=== PATIENT | female | born 1955 | race Hispanic/Latino ===

== ENCOUNTER 2016-10-17 16:55 | Inpatient (IN) | payer OTHER ==
[2016-10-17] MEDS: Vancomycin 1gm in NS 250ml 1 GM/250 ML BAG IVPB SCH (18:32)
[2016-10-17 18:42] LABS: BASO # 0.01 K/mm3 (0.0-2.0); BASO % 0.1 % (0.0-3.0); EOS # 0.1 (0.0-0.7); EOS % 1.6 % (1.5-5.0); GRAN # 5.57 (1.4-6.5); GRAN % 72.6 % (50.0-68.0); HEMATOCRIT 35.4 % (36.0-48.0); LYMPH # 1.5 (1.2-3.4); LYMPH % 19.4 % (22.0-35.0); MEAN CELL VOLUME 86.1 fl (80.0-105.0); MEAN CORPUSCULAR HEMOGLOBIN 27.5 pg (25.0-35.0); MEAN CORPUSCULAR HGB CONC 31.9 g/dl (31.0-37.0); MEAN PLATELET VOLUME 10.8 fl (7.0-11.0); MONO # 0.5 (0.1-0.6); MONO % 6.3 % (1.0-6.0); RED CELL DISTRIBUTION WIDTH 14.4 % (11.5-14.5); WHITE BLOOD COUNT 7.7 10^3/ul (4.5-11.0)
[2016-10-17 18:51] LABS: ALB/GLOB RATIO 1.4 (1.1-1.8); ALKALINE PHOSPHATASE 141 U/L (38-126); ALT/SGPT 76 U/L (7-56); AST/SGOT 45 U/L (14-36); BILIRUBIN,TOTAL 0.6 mg/dL (0.2-1.3); BLOOD UREA NITROGEN 19 mg/dL (7-21); CALCIUM 9.4 mg/dL (8.4-10.5); CARBON DIOXIDE 27 mmol/L (21-33); CHLORIDE 104 mmol/L (98-107); GFR AFRICAN-AMERICAN > 60; GLUCOSE,RANDOM 112 mg/dL (70-110); POTASSIUM 4.7 mmol/L (3.6-5.0); SODIUM 141 mmol/L (132-148); TOTAL PROTEIN 7.1 g/dL (5.8-8.3)
--- NOTE | 2016-10-17 19:28 | ED PDOC ---
Addendum entered and electronically signed by Luis Raphael DO 22:22: Addendum Addendum: 10/17/16 22:10 Please ignore HPI, ROS, and PE in previous note. Please add Plan below to plan in previous note. HPI: 61 F with Past medical history significant for diabetes presents with 1 month duration of LLE cellulitis. Patient states that she did go to [facility] a month ago when it started to get it checked out, and she was prescribed Abx, but she did not have insurance so she did not get the Rx filled. Since then, the infection has gotten worse, and now that she has insurance again, she would like to get treated. Patient denies cp/sob/f/ch/n/v/d. She further denies los and denies loss of function proximal or distal to the cellulitis. Patient has no further complaints. ROS: Constitutional: pt denies fever, chills, generalized weakness ENT: pt denies dysphagia, otalgia, hearing deficit, rhinorrhea Eyes: pt denies sudden loss of vision, diplopia, blurred vision MSK: pt denies muscle stiffness, joint pain, extremity cramping Cardio: pt denies sob, heart murmur, cp Pulm: pt denies cough, hemoptysis, wheeze GI: pt denies loss of appetite, abdominal pain, constipation, melena, n/v/d : pt denies burning on urination, urinary frequency, hematuria, urinary urgency Neuro: pt denies paresis, paresthesia, dizziness, grijalva, numbness, tingling Derm: +see HPI Endo: pt denies intolerance to heat/cold, diaphoresis, night sweats, polydipsia Psych: pt denies anxiety, depression, mood changes PE VS as below Constitutional: a&o x 4, nad Head and Neck: neck supple, no jvd, trachea midline, carotid midline, no cervical/head mass Eyes: tima, nonicteric sclera, eom intact ENT: auditory acuity grossly intact, throat not congested, no nasal deformity Cardio: rrr, no m/r/g, no carotid bruit, nml s1, s2 Pulm: no accessory muscle use, equal nml breath sounds bilaterally, ctab Abd: s/nt/nd, nbs x 4 q, no palpable masses Derm: no rashes, no ulcers, no lesions Extr: +LLE Anterior hay is erythematous with a large cellulitic lesion. Is oozing pus, is malodorous, and is TTP. No los or loss of motor function proximal or distal to the wound. +Patient has significant b/l 1+ pitting edema. no cyanosis, no calf tenderness, no lesions, no varicosities Neuro: cn II-XII grossly intact, ue and le 5/5 muscle strength bilaterally, no los ue, le bilaterally and core Plan: - Tib/fib XR does not show any penetration into the bone. - Case d/w Dr. Dominguez for admission to hospitalist service. Dr. Dominguez agreed to admission to hospitalist service on med/surg. Original Note: Arrival/HPI <Luis Raphael - Last Filed: 10/17/16 22:10> <Fer Guerrero DO - Last Filed: 10/17/16 22:51> - General Chief Complaint: Lower Extremity Problem/Injury Time Seen by Provider: 10/17/16 17:11 - History of Present Illness Narrative History of Present Illness (Text): 10/17/16 21:22 61 F presents with complaints of dizziness. Patient states that she was walking around a nearby park when she started feeling lightheaded. Patient also states that she had some chest pain that coincided with the dizziness. She denies any other symptoms, including f/ch/sob/n/v/d/, hematuria, dysuria, change in vision, symptoms of a URI, loc, falling and hitting her head. Patient is german speaking and folder stitcher operator was used. Of note, patient was insistent that her son is in this hospital and that she needs to have important documents placed in his chart. Registration helped place the documents where they were supposed to be. 10/17/16 21:25 (Luis Raphael) Past Medical History - Provider Review Nursing Documentation Reviewed: Yes - Infectious Disease Hx of Infectious Diseases: None - Reproductive Menopause: Yes - Cardiac Hx ME: Yes (2012) Hx Hypertension: Yes - Pulmonary Hx Asthma: Yes Hx Chronic Obstructive Pulmonary Disease (COPD): Yes - Endocrine/Metabolic Hx Diabetes Mellitus Type 2: Yes - Psychiatric Hx Substance Use: No - Surgical History Other/Comment: by-pass both legs - Anesthesia Hx Anesthesia Reactions: No Hx Malignant Hyperthermia: No <Luis Raphael - Last Filed: 10/17/16 22:10> Family/Social History - Physician Review Nursing Documentation Reviewed: Yes Family/Social History: No Known Family HX Smoking Status: Never Smoked Hx Alcohol Use: No Hx Substance Use: No <Luis Raphael - Last Filed: 10/17/16 22:10> Allergies/Home Meds <Luis Raphael - Last Filed: 10/17/16 22:10> <Fer Guerrero DO - Last Filed: 10/17/16 22:51> Allergies/Adverse Reactions: Allergies No Known Allergies Allergy (Verified 10/17/16 17:04) Home Medications: Home Meds Medication Instructions Recorded Confirmed Unobtainable 10/17/16 10/17/16 Review of Systems - Physician Review All systems were reviewed & negative as marked: Yes - Review of Systems Constitutional: Normal. absent: Fatigue, Weight Change Eyes: Normal. absent: Vision Changes, Photophobia ENT: Normal. absent: Hearing Changes, Tinnitus Respiratory: Normal. absent: SOB, Cough, Sputum Cardiovascular: Chest Pain. absent: Palpitations, Edema, Calf Pain Gastrointestinal: Normal. absent: Abdominal Pain, Stool Changes, Constipation, Nausea, Vomiting Genitourinary Female: Normal. absent: Dysuria, Frequency, Hematuria, Urine Output Changes Musculoskeletal: Normal. absent: Arthralgias, Back Pain, Neck Pain Skin: Normal. absent: Rash, Pruritis, Skin Lesions Neurological: Dizziness. absent: Headache, Focal Weakness Endocrine: Normal. absent: Diaphoresis, Polyuria, Polydipsia Hemo/Lymphatic: Normal. absent: Adenopathy, Easy Bleeding, Easy Bruising Psychiatric: Normal. absent: Anxiety, Depression, Suicidal Ideation <Luis Raphael - Last Filed: 10/17/16 22:10> Physical Exam Vital Signs Reviewed: Yes Temperature: Afebrile Blood Pressure: Normal Pulse: Regular Respiratory Rate: Normal Appearance: Positive for: Well-Appearing, Non-Toxic, Comfortable Pain Distress: None Mental Status: Positive for: Alert and Oriented X 3 - Systems Exam Head: Present: Atraumatic, Normocephalic. No: Tenderness, Contusion Pupils: Present: PERRL. No: Sluggish, Non-Reactive, Pinpoint Extroacular Muscles: Present: EOMI. No: Gaze Palsy, Entrapment Conjunctiva: Present: Normal. No: Injected, Icteric Mouth: Present: Moist Mucous Membranes. No: Dry, Drooling, Trismus Neck: Present: Normal Range of Motion. No: Meningeal Signs, MIDLINE TENDERNESS , Paraspinal Tenderness Respiratory/Chest: Present: Clear to Auscultation, Good Air Exchange. No: Respiratory Distress, Accessory Muscle Use Cardiovascular: Present: Regular Rate and Rhythm, Normal S1, S2. No: Murmurs Abdomen: Present: Normal Bowel Sounds. No: Tenderness, Distention, Peritoneal Signs Back: Present: Normal Inspection. No: CVA Tenderness, Midline Tenderness, Paraspinal Tenderness Upper Extremity: Present: Normal Inspection, Normal ROM. No: Cyanosis, Edema Lower Extremity: Present: Normal Inspection, NORMAL PULSES, Normal ROM. No: Edema, CALF TENDERNESS Neurological: Present: GCS=15, CN II-XII Intact, Speech Normal, Motor Func Grossly Intact Skin: Present: Warm, Dry, Normal Color. No: Rashes Psychiatric: Present: Alert, Oriented x 3, Normal Insight, Normal Concentration <Luis Raphael - Last Filed: 10/17/16 22:10> Medical Decision Making <Luis Raphael - Last Filed: 10/17/16 22:10> <Fer Guerrero DO - Last Filed: 10/17/16 22:51> ED Course and Treatment: 10/17/16 20:33 Impression: 61 F with infection on her LLE. Sent here by Dr. Travis Barnes - Wound cx, blood cx - LLE XR - CMP, CBC - Vancomycin q 12 (Luis Raphael) - Lab Interpretations Lab Results: 10/17/16 18:20 10/17/16 18:20 Lab Results 10/17/16 18:20: Sodium 141, Potassium 4.7, Chloride 104, Carbon Dioxide 27, Anion Gap 15, BUN 19, Creatinine 0.8, Est GFR ( Amer) > 60, Est GFR (Non- Af Amer) > 60, Random Glucose 112 H, Calcium 9.4, Total Bilirubin 0.6, AST 45 H , ALT 76 H, Alkaline Phosphatase 141 H, Total Protein 7.1, Albumin 4.1, Globulin 3.0, Albumin/Globulin Ratio 1.4 10/17/16 18:20: WBC 7.7, RBC 4.11, Hgb 11.3 L, Hct 35.4 L, MCV 86.1, MCH 27.5, MCHC 31.9, RDW 14.4, Plt Count 208, MPV 10.8, Gran % 72.6 H, Lymph % (Auto) 19.4 L, [place] % (Auto) 6.3 H, Eos % (Auto) 1.6, Baso % (Auto) 0.1, Gran # 5.57, Lymph # 1.5, [place] # 0.5, Eos # 0.1, Baso # 0.01 - RAD Interpretation Radiology Orders: 10/17/16 17:36 TIBIA FIBULA LEFT [RAD] Stat - Medication Orders Current Medication Orders: Albuterol/Ipratropium (Duoneb 3 Mg/0.5 Mg (3 Ml) Ud) 3 ml IH [id number] PRN PRN Reason: Shortness of Breath Aspirin (Aspirin Chewable) 81 mg PO DAILY JAMAR Atorvastatin Calcium (Lipitor) 20 mg PO DIN JAMAR Clopidogrel Bisulfate (Plavix) 75 mg PO DAILY JAMAR Vancomycin HCl (Vancomycin 1gm) 1 gm in 250 mls @ 167 mls/hr IVPB Q12H JAMAR PRN Reason: Protocol Last Admin: 10/17/16 18:32 Dose: 167 mls/hr Piperacillin Sod/Tazobactam Sod (Zosyn 3.375 In Ns 100ml) 100 mls @ 200 mls/hr IVPB Q6 JAMAR PRN Reason: Protocol Stop: 10/18/16 06:29 Sodium Chloride (Sodium Chloride 0.9%) 100 mls @ 75 mls/hr IV .Q1H20M JAMAR Insulin Human Lispro (Humalog Low) 0 units SC ACHS JAMAR PRN Reason: Protocol Lisinopril (Zestril) 5 mg PO DAILY JAMAR - PA / PROPERTY COORDINATOR / Resident Statement / has reviewed & agrees with the documentation as recorded. / has examined the patient and agrees with the treatment plan. <Fer Guerrero DO - Last Filed: 10/17/16 22:51> Disposition/Present on Arrival - Present on Arrival Any Indicators Present on Arrival: Yes History of DVT/PE: No History of Uncontrolled Diabetes: Yes Urinary Catheter: No History of Decub. Ulcer: No History Surgical Site Infection Following: None - Disposition Have Diagnosis and Disposition been Completed?: Yes Disposition Time: 19:55 Patient Plan: Admission <Luis Raphael - Last Filed: 10/17/16 22:10> - Disposition Disposition Time: 19:10 <Fer Guerrero DO - Last Filed: 10/17/16 22:51> - Disposition Diagnosis: Cellulitis Disposition: HOSPITALIZED Condition: STABLE
[2016-10-17] MEDS ORDERED: Albuterol-Ipratrop 3 mg / 0.5 (3 ml) UD IH PRN (22:19)
[2016-10-17] MEDS ORDERED: Sodium Chloride 0.9% 100 ML IV SCH (22:24)
[2016-10-17] MEDS: Piperacillin/Tazobact 3.375 gm 100 ML IVPB SCH (23:20)
--- NOTE | 2016-10-18 04:48 | CP.PCM.HP ---
<Luz MariaAquiles - Last Filed: 10/18/16 05:37> History of Present Illness - History of Present Illness History of Present Illness: IM H&P for Hospitalist Service CC: Leg Ulcer and cellulitis HPI: This is a 61 yo F with PMH of CAD s/p CABG x4, CT in 2012, DM, COPD, Asthma, HTN, and HLD who presents to [facility] with acutely worsening LLE ulceration with accompanying cellulitis. As per patient, she first incidentally noticed the ulceration ~ 1 month ago, at which time she presented to [facility]. She was discharged with antibiotics from [facility], but due to lacking insurance at the time, could not afford to get the script filled, so she never took the antibiotic. She reports that the infection /ulceration remained fairly stable/unchanging for ~3 weeks, but she has noticed acute worsening in the last 5 days, so she presented to her PMD's office, who instructed her to present to [facility]. Reports serosanguinous drainage from the site , but denies pus or gross bleeding from the site. Some tenderness at and around the site, but patient reports not significant pain, not limiting ambulation. Reports baseline mild paresthesias in bilateral LE from mid-shins to feet, some decreased sensation in bilateral LE but not to the point of numbness or to the point of inhibiting gait. Denies fevers/chills, headache, vision changes, dizziness/room-spinning, chest pain, shortness of breath, cough , nausea/emesis, abd pain, focal weakness, or falls. All remaining ROS in 12- point system review negative. PMH: As above PSH: CABG quadruple bypass FHx: DM, HTN SHx: Denies tobacco/alcohol/illicits PMD: Dr. Robles Follows a Talent Acquisition Specialist in [place] Present on Admission - Present on Admission Any Indicators Present on Admission: Yes History of DVT/PE: No History of Uncontrolled Diabetes: Yes Urinary Catheter: No Review of Systems - Review of Systems All systems: reviewed and no additional remarkable complaints except (as per HPI ) Past Patient History - Infectious Disease Hx of Infectious Diseases: None - Past Social History Smoking Status: Never Smoked - CARDIAC Hx Heart Attack: Yes (2012) Hx Hypertension: Yes - PULMONARY Hx Asthma: Yes Hx Chronic Obstructive Pulmonary Disease (COPD): Yes - ENDOCRINE/METABOLIC Hx Diabetes Mellitus Type 2: Yes - MUSCULOSKELETAL/RHEUMATOLOGICAL Hx Falls: No - PSYCHIATRIC Hx Substance Use: No - SURGICAL HISTORY Other/Comment: by-pass both legs - ANESTHESIA Hx Anesthesia Reactions: No Hx Malignant Hyperthermia: No Meds Allergies/Adverse Reactions: Allergies Allergy/AdvReac Type Severity Reaction Status Date / Time No Known Allergies Allergy Verified 10/17/16 17:04 Physical Exam - Constitutional Appears: Well, Non-toxic, No Acute Distress - Head Exam Head Exam: ATRAUMATIC, NORMAL INSPECTION, NORMOCEPHALIC - Eye Exam Eye Exam: EOMI, Normal appearance, PERRL. absent: Conjunctival injection, Scleral icterus Pupil Exam: NORMAL ACCOMODATION, PERRL. absent: Fixed, Irregular, Unequal - ENT Exam ENT Exam: Mucous Membranes Moist. absent: Mucous Membranes Dry - Neck Exam Neck exam: Positive for: Full Rom. Negative for: Lymphadenopathy - Respiratory Exam Respiratory Exam: Clear to Auscultation Bilateral, NORMAL BREATHING PATTERN. absent: Accessory Muscle Use, Chest Wall Tenderness, Decreased Breath Sounds, Rales, Rhonchi, Wheezes - Cardiovascular Exam Cardiovascular Exam: REGULAR RHYTHM, RRR, +S1, +S2. absent: Bradycardia, Tachycardia, Irregular Rhythm, +S4 - GI/Abdominal Exam GI & Abdominal Exam: Normal Bowel Sounds, Soft. 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 Good grooming of R foot, no onycholysis. Some slight discoloration along anterior midline surface of RLE not appearing to be cellulitic in nature, no fluctuance or abnormal temperature sensation on palpation LLE: Anterior lateral aspect of hay has with ulceration, diameter 3-4 cm at largest, irregular borders, invasion through epidermis but no involvement of deep structures (i.e. muscle, tendons, etc), not actively discharging from site even when pressure applied. Cellulitis spreading superiorly and inferiorly from wound site, extends circumferentially along LLE; no fluctuance palpated or temperature abnormalities palpated - Neurological Exam Neurological exam: Alert, CN II-XII Intact, Oriented x3 Additional comments: awake and alert, moving all extremities spontaneously, following all commands appropriately - Psychiatric Exam Psychiatric exam: Normal Affect, Normal Mood - Skin Skin Exam: Dry, Intact (except for LLE ulceration as documented in Extremities exam), Warm Results - Vital Signs Recent Vital Signs: Last Vital Signs Temp 98.2 F 10/18/16 01:40 Pulse 84 10/18/16 01:40 Resp 18 10/18/16 01:40 BP 158/67 H 10/18/16 01:40 Pulse Ox 98 10/17/16 21:46 - Labs Result Diagrams: 10/17/16 18:20 10/17/16 18:20 Assessment & Plan - Assessment and Plan (Free Text) Assessment: This is a 61 yo F with PMH of CAD s/p CABG x4, CT in 2012, DM, COPD, Asthma, HTN, and HLD who presents to [facility] with acutely worsening LLE ulceration with accompanying cellulitis. She is being admitted to receive IV antibiotics, pending ID and Podiatry evals and assessment. Plan: 1) LLE Ulceration with Cellulitis -likely 2/2 DM, need to rule out osteo -palpable distal pulses, so unlikely arterial insufficiency -Tib/Fib Radiograph obtained, no overt osteo noted, pending official read -Vanco 1g q12 started in ED, added Zosyn given DM; pending ID recs -Blood and wound cultures obtained, f/u -Podiatry and ID consulted, appreciate their recs 2) Hx DM -Lipro sliding scale, Fingerstick ACHS -holding home metformin 3) Hx HTN -starting on Lispro 5mg PO daily, will change to home regimen when able to reach her outpt pharmacy to confirm home regimen 4) Hx CAD s/p CABG -starting on Asa 81mg, Plavix 75mg, and Lipitor 20mg until home regimen can be determined, will switch at that time to home meds 5) Hx COPD/Asthma -satting well on room air, no indication for supplemental O2 at this time -Duonebs q6 prn Dispo: Med/Surg, receiving IV abx, pending Podiatry and ID eval and input, pending cultures and sensitivities FEN: Heart-healthy consistent Carb, NS 75cc/hr Access: Peripheral IV Consults: ID, Podiatry Ppx: Protonix for ID, Heparin SC for DVT Patient reviewed and discussed with attending, Dr. Dominguez. <Altagracia Dominguez - Last Filed: 10/19/16 03:33> Results - Vital Signs Recent Vital Signs: Last Vital Signs Temp 97.7 F 10/18/16 17:36 Pulse 83 10/18/16 17:44 Resp 20 10/18/16 17:36 BP 161/63 H 10/18/16 17:44 Pulse Ox 98 10/18/16 17:36 - Labs Result Diagrams: 10/18/16 05:00 10/18/16 05:00 Labs: Laboratory Results - last 24 hr 10/18/16 10/18/16 10/18/16 05:00 05:00 07:32 WBC 5.8 D RBC 3.87 Hgb 10.4 L Hct 33.4 L MCV 86.3 MCH 26.9 MCHC 31.1 RDW 14.7 H Plt Count 177 MPV 10.3 Gran % 78.9 H Lymph % (Auto) 13.9 L [place] % (Auto) 5.3 Eos % (Auto) 1.7 Baso % (Auto) 0.2 Gran # 4.60 Lymph # 0.8 L [place] # 0.3 Eos # 0.1 Baso # 0.01 ESR Sodium 141 Potassium 4.5 Chloride 108 H Carbon Dioxide 25 Anion Gap 13 BUN 15 Creatinine 0.8 Est GFR ( Amer) > 60 Est GFR (Non-Af Amer) > 60 POC Glucose (mg/dL) 129 H Random Glucose 123 H Calcium 8.8 Phosphorus 4.4 Magnesium 1.6 L Total Bilirubin 0.9 AST 37 H ALT 62 H Alkaline Phosphatase 114 C-React Prot High Sens Total Protein 5.8 Albumin 3.2 Globulin 2.5 Albumin/Globulin Ratio 1.3 10/18/16 10/18/16 10/18/16 11:00 11:50 11:55 WBC RBC Hgb Hct MCV MCH MCHC RDW Plt Count MPV Gran % Lymph % (Auto) [place] % (Auto) Eos % (Auto) Baso % (Auto) Gran # Lymph # [place] # Eos # Baso # ESR 26 H Sodium Potassium Chloride Carbon Dioxide Anion Gap BUN Creatinine Est GFR ( Amer) Est GFR (Non-Af Amer) POC Glucose (mg/dL) 205 H Random Glucose Calcium Phosphorus Magnesium Total Bilirubin AST ALT Alkaline Phosphatase C-React Prot High Sens > 15.00 H Total Protein Albumin Globulin Albumin/Globulin Ratio 10/18/16 10/18/16 17:06 21:28 WBC RBC Hgb Hct MCV MCH MCHC RDW Plt Count MPV Gran % Lymph % (Auto) [place] % (Auto) Eos % (Auto) Baso % (Auto) Gran # Lymph # [place] # Eos # Baso # ESR Sodium Potassium Chloride Carbon Dioxide Anion Gap BUN Creatinine Est GFR ( Amer) Est GFR (Non-Af Amer) POC Glucose (mg/dL) 172 H 115 H Random Glucose Calcium Phosphorus Magnesium Total Bilirubin AST ALT Alkaline Phosphatase C-React Prot High Sens Total Protein Albumin Globulin Albumin/Globulin Ratio Attending/Attestation - Attestation I have personally seen and examined this patient.: Yes I have fully participated in the care of the patient.: Yes I have reviewed all pertinent clinical information: Yes Notes (Text): 10/19/16 03:32 Agree with history , physical examination,assessment and plan.
[2016-10-18] MEDS: Vancomycin 1gm in NS 250ml 1 GM/250 ML BAG IVPB SCH (05:25)
[2016-10-18] MEDS: Piperacillin/Tazobact 3.375 gm 100 ML IVPB SCH (05:26)
[2016-10-18] MEDS: Pantoprazole 40 mg EC Tab PO SCH (05:40)
[2016-10-18 06:50] LABS: ALB/GLOB RATIO 1.3 (1.1-1.8); ALKALINE PHOSPHATASE 114 U/L (38-126); ALT/SGPT 62 U/L (7-56); AST/SGOT 37 U/L (14-36); BILIRUBIN,TOTAL 0.9 mg/dL (0.2-1.3); BLOOD UREA NITROGEN 15 mg/dL (7-21); CALCIUM 8.8 mg/dL (8.4-10.5); CARBON DIOXIDE 25 mmol/L (21-33); CHLORIDE 108 mmol/L (98-107); GFR AFRICAN-AMERICAN > 60; GLUCOSE,RANDOM 123 mg/dL (70-110); MAGNESIUM 1.6 mg/dL (1.7-2.2); PHOSPHOROUS 4.4 mg/dL (2.5-4.5); POTASSIUM 4.5 mmol/L (3.6-5.0); SODIUM 141 mmol/L (132-148); TOTAL PROTEIN 5.8 g/dL (5.8-8.3)
[2016-10-18 06:56] LABS: BASO # 0.01 K/mm3 (0.0-2.0); BASO % 0.2 % (0.0-3.0); EOS # 0.1 (0.0-0.7); EOS % 1.7 % (1.5-5.0); GRAN # 4.6 (1.4-6.5); GRAN % 78.9 % (50.0-68.0); HEMATOCRIT 33.4 % (36.0-48.0); LYMPH # 0.8 (1.2-3.4); LYMPH % 13.9 % (22.0-35.0); MEAN CELL VOLUME 86.3 fl (80.0-105.0); MEAN CORPUSCULAR HEMOGLOBIN 26.9 pg (25.0-35.0); MEAN CORPUSCULAR HGB CONC 31.1 g/dl (31.0-37.0); MEAN PLATELET VOLUME 10.3 fl (7.0-11.0); MONO # 0.3 (0.1-0.6); MONO % 5.3 % (1.0-6.0); RED CELL DISTRIBUTION WIDTH 14.7 % (11.5-14.5); WHITE BLOOD COUNT 5.8 10^3/ul (4.5-11.0)
[2016-10-18] MEDS ORDERED: Magnesium Sulfate 2 GM in Sodium Chloride 0.9% 100 ML IVPB ONE (07:43)
[2016-10-18] MEDS: Insulin Lispro (humaLOG) LOW Coverage SC SCH ×3 (08:09→17:26)
[2016-10-18] MEDS: Linezolid 600 mg in D5W 300 ml 600 MG/300 ML BAG IVPB SCH ×2 (09:31→22:21)
--- NOTE | 2016-10-18 11:12 | RAD ---
PROCEDURE: Radiographs of the left tibia and fibula. HISTORY: left LE cellulitis r/o osteomyelitis COMPARISON: None available. TECHNIQUE: Frontal and lateral views obtained. FINDINGS: BONES: No fracture or destructive lesion. JOINT SPACES: Unremarkable. OTHER FINDINGS: None. IMPRESSION: Unremarkable radiographs of the left tibia and fibula.
--- NOTE | 2016-10-18 13:11 | CP.PCM.CON ---
History of Present Illness - History of Present Illness History of Present Illness: 61 year old female with PMH of CAD S/P CABG (quadruple bypass), COPD, DM, asthma , dyslipidemia, HTN, obesity with BMI 37 came in to [facility] because of left lower extremity ulceration on the anterior leg area. She apparently had the ulcer a month ago and was at [facility] and was discharged on PO antibiotics but was not able to procure them because of lack of insurance. She noted worsening of the ulcer in the past week with some drainage but not outright pus. She denies specific animal contacts, no soaking her legs in water, no trips to wooded areas, no soil exposure. She also denies fever or chills, no nausea or vomiting, no headache or dizziness, no chest pain, no SOB, no cough or colds, no abdominal pain, no diarrhea, no dysuria. Infectious diseases consult is requested to further evaluate and manage. Review of Systems - Review of Systems All systems: reviewed and no additional remarkable complaints except (as per HPI ) Past Patient History - Infectious Disease Hx of Infectious Diseases: None - Past Social History Smoking Status: Never Smoked - CARDIAC Hx Heart Attack: Yes (2012) Hx Hypertension: Yes - PULMONARY Hx Asthma: Yes Hx Chronic Obstructive Pulmonary Disease (COPD): Yes - ENDOCRINE/METABOLIC Hx Diabetes Mellitus Type 2: Yes - MUSCULOSKELETAL/RHEUMATOLOGICAL Hx Falls: No - PSYCHIATRIC Hx Substance Use: No - SURGICAL HISTORY Other/Comment: by-pass both legs - ANESTHESIA Hx Anesthesia Reactions: No Hx Malignant Hyperthermia: No Meds Allergies/Adverse Reactions: Allergies Allergy/AdvReac Type Severity Reaction Status Date / Time No Known Allergies Allergy Verified 10/17/16 17:04 - Medications Medications: Current Medications Albuterol/Ipratropium (Duoneb 3 Mg/0.5 Mg (3 Ml) Ud) 3 ml IH [id number] PRN PRN Reason: Shortness of Breath Aspirin (Aspirin Chewable) 81 mg PO DAILY [facility] Atorvastatin Calcium (Lipitor) 20 mg PO DIN [facility] Clopidogrel Bisulfate (Plavix) 75 mg PO DAILY [facility] Heparin Sodium (Porcine) (Heparin) 5,000 units SC Q12 JAMAR PRN Reason: Protocol Vancomycin HCl (Vancomycin 1gm) 1 gm in 250 mls @ 167 mls/hr IVPB Q12H JAMAR PRN Reason: Protocol Last Admin: 10/18/16 05:25 Dose: 167 mls/hr Sodium Chloride (Sodium Chloride 0.9%) 100 mls @ 75 mls/hr IV .Q1H20M JAMAR Last Admin: 10/17/16 23:19 Dose: 75 mls/hr Insulin Human Lispro (Humalog Low) 0 units SC ACHS [facility] PRN Reason: Protocol Lisinopril (Zestril) 5 mg PO DAILY JAMAR Pantoprazole Sodium (Protonix Ec Tab) 40 mg PO 0600 [facility] Physical Exam - Constitutional Appears: Non-toxic, No Acute Distress - Head Exam Head Exam: NORMAL INSPECTION - Respiratory Exam Respiratory Exam: Decreased Breath Sounds - Cardiovascular Exam Cardiovascular Exam: +S1, +S2 - GI/Abdominal Exam GI & Abdominal Exam: Soft. absent: Tenderness - Extremities Exam Additional comments: left leg with ulcer with surrounding erythema Results - Vital Signs Recent Vital Signs: Last Vital Signs Temp 98.2 F 10/18/16 01:40 Pulse 84 10/18/16 01:40 Resp 18 10/18/16 01:40 BP 158/67 H 10/18/16 01:40 Pulse Ox 98 10/17/16 21:46 - Labs Result Diagrams: 10/18/16 05:00 10/18/16 05:00 Assessment & Plan - Assessment and Plan (Free Text) Plan: Assessment Consider infected left leg ulcer in a diabetic patient, with surrounding cellulitis CAD S/P CABG (quadruple bypass) COPD DM asthma dyslipidemia HTN obesity with BMI 37 Plan Started patient on Zyvox pending blood and wound cx; will get ESR and CRP and order doppler U/S to rule out peripheral vascular disease follow up Podiatry evaluation will check xray of the leg will monitor clinically
[2016-10-18] MEDS: Sodium Chloride 0.9% 1,000 ML IV SCH (18:19)
[2016-10-19] MEDS: Pantoprazole 40 mg EC Tab PO SCH (05:49)
[2016-10-19] MEDS: Insulin Lispro (humaLOG) LOW Coverage SC SCH ×4 (07:30→22:30)
[2016-10-19] MEDS: Linezolid 600 mg in D5W 300 ml 600 MG/300 ML BAG IVPB SCH ×2 (09:46→21:51)
--- NOTE | 2016-10-19 10:33 | CP.PCM.PN ---
<Rick Ohara - Last Filed: 10/19/16 12:37> Subjective - Date & Time of Evaluation Date of Evaluation: 10/19/16 Time of Evaluation: 10:31 - Subjective Subjective: Rick Ohara DO, PGY-1, Hospitalist Service Patient seen and examined at beside. Patient admits to bilateral LE tenderness, more in the left hay/calf area. No fever overnight. Objective - Vital Signs/Intake and Output Vital Signs (last 24 hours): Temp Pulse Resp BP Pulse Ox 98 F 79 19 145/53 L 95 10/19/16 07:50 10/19/16 09:46 10/19/16 07:50 10/19/16 09:46 10/19/16 07:50 - Medications Medications: Current Medications Albuterol/Ipratropium (Duoneb 3 Mg/0.5 Mg (3 Ml) Ud) 3 ml IH [id number] PRN PRN Reason: Shortness of Breath Aspirin (Aspirin Chewable) 81 mg PO DAILY [facility] Last Admin: 10/19/16 09:46 Dose: 81 mg Atorvastatin Calcium (Lipitor) 20 mg PO DIN [facility] Last Admin: 10/18/16 17:26 Dose: 20 mg Clopidogrel Bisulfate (Plavix) 75 mg PO DAILY [facility] Last Admin: 10/19/16 09:47 Dose: 75 mg Heparin Sodium (Porcine) (Heparin) 5,000 units SC Q12 [facility] PRN Reason: Protocol Last Admin: 10/19/16 09:47 Dose: 5,000 units Linezolid (Zyvox 600mg/300ml D5w) 600 mg in 300 mls @ 200 mls/hr IVPB Q12 [facility] PRN Reason: Protocol Stop: 10/25/16 10:01 Last Admin: 10/19/16 09:46 Dose: 200 mls/hr Sodium Chloride (Sodium Chloride 0.9%) 1,000 mls @ 75 mls/hr IV .[id number] [facility] Last Admin: 10/18/16 18:19 Dose: 75 mls/hr Insulin Human Lispro (Humalog Low) 0 units SC ACHS [facility] PRN Reason: Protocol Last Admin: 10/19/16 07:30 Dose: Not Given Lisinopril (Zestril) 5 mg PO DAILY [facility] Last Admin: 10/19/16 09:46 Dose: 5 mg Pantoprazole Sodium (Protonix Ec Tab) 40 mg PO 0600 [facility] Last Admin: 10/19/16 05:49 Dose: 40 mg - Labs Labs: 10/18/16 05:00 10/18/16 05:00 - Constitutional Appears: Non-toxic, No Acute Distress - Head Exam Head Exam: ATRAUMATIC, NORMOCEPHALIC - Eye Exam Eye Exam: EOMI, Normal appearance, PERRL Pupil Exam: NORMAL ACCOMODATION - ENT Exam ENT Exam: Mucous Membranes Moist, Normal Oropharynx - Neck Exam Neck Exam: Normal Inspection. absent: Lymphadenopathy, Thyromegaly - Respiratory Exam Respiratory Exam: Clear to Ausculation Bilateral, NORMAL BREATHING PATTERN. absent: Rales, Wheezes - Cardiovascular Exam Cardiovascular Exam: RRR, +S1, +S2 - GI/Abdominal Exam GI & Abdominal Exam: Soft, Normal Bowel Sounds. absent: Guarding, Rebound - Extremities Exam Extremities Exam: Calf Tenderness (left) Additional comments: Left lower extremity is warm to palpation with pain to palpation diffusely, open scar noted to be 2 x2.5 inches - Back Exam Back Exam: NORMAL INSPECTION. absent: CVA tenderness (L), CVA tenderness (R) - Neurological Exam Neurological Exam: Alert, Awake, Normal Gait, Oriented x3 - Psychiatric Exam Psychiatric exam: Normal Affect, Normal Mood - Skin Skin Exam: Dry, Warm. absent: Intact Assessment and Plan - Assessment and Plan (Free Text) Assessment: This is a 61 yo F with PMH of CAD s/p CABG x4, [place] in 2012, DM, COPD, Asthma, HTN, and HLD who [place] [facility] [place] worsening LLE ulceration with accompanying cellulitis. She is being admitted to receive IV antibiotics, pending ID and Podiatry evals and assessment. Plan: 1) LLE Ulceration with Cellulitis -Tib/Fib Radiograph grossly unremarkable - LLE US to rule out underlying DVT, performed, read pending. - Blood cultures (-) - Wound cultures of LLE grew gram positive cocci in clusters, pending final culture and sensitivities - Per ID, Linezolid 600 mg IV q12h, day # 2 - Podiatry consulted - ESR 26 and high sensitivity CRP 15 2) Diabetes Mellitus -ISS sliding scale, Fingerstick ACHS 3) Hypertension - Lisinopril 5 mg 4) CAD with CABG - Aspirin 81mg - Plavix 75mg - Lipitor 20mg 5) COPD/Asthma - Duoneb PRN 6) DVT/GI prophylaxis - Heparin 5,000 U q12h, Protonix 40 mg PO daily Patient reviewed and discussed with attending, Dr. Matamoros <Mame Matamoros - Last Filed: 10/19/16 12:59> Objective - Vital Signs/Intake and Output Vital Signs (last 24 hours): Temp Pulse Resp BP Pulse Ox 98 F 79 19 145/53 L 95 10/19/16 07:50 10/19/16 09:46 10/19/16 07:50 10/19/16 09:46 10/19/16 07:50 - Medications Medications: Current Medications Albuterol/Ipratropium (Duoneb 3 Mg/0.5 Mg (3 Ml) Ud) 3 ml IH [id number] PRN PRN Reason: Shortness of Breath Aspirin (Aspirin Chewable) 81 mg PO DAILY [facility] Last Admin: 10/19/16 09:46 Dose: 81 mg Atorvastatin Calcium (Lipitor) 20 mg PO DIN [facility] Last Admin: 10/18/16 17:26 Dose: 20 mg Clopidogrel Bisulfate (Plavix) 75 mg PO DAILY [facility] Last Admin: 10/19/16 09:47 Dose: 75 mg Heparin Sodium (Porcine) (Heparin) 5,000 units SC Q12 [facility] PRN Reason: Protocol Last Admin: 10/19/16 09:47 Dose: 5,000 units Linezolid (Zyvox 600mg/300ml D5w) 600 mg in 300 mls @ 200 mls/hr IVPB Q12 [facility] PRN Reason: Protocol Stop: 10/25/16 10:01 Last Admin: 10/19/16 09:46 Dose: 200 mls/hr Sodium Chloride (Sodium Chloride 0.9%) 1,000 mls @ 75 mls/hr IV .[id number] [facility] Last Admin: 10/18/16 18:19 Dose: 75 mls/hr Insulin Human Lispro (Humalog Low) 0 units SC ACHS [facility] PRN Reason: Protocol Last Admin: 10/19/16 12:24 Dose: 1 units Lisinopril (Zestril) 5 mg PO DAILY [facility] Last Admin: 10/19/16 09:46 Dose: 5 mg Pantoprazole Sodium (Protonix Ec Tab) 40 mg PO 0600 [facility] Last Admin: 10/19/16 05:49 Dose: 40 mg - Labs Labs: 10/18/16 05:00 10/18/16 05:00 Attending/Attestation - Attestation I have personally seen and examined this patient.: Yes I have fully participated in the care of the patient.: Yes I have reviewed all pertinent clinical information, including history, physical exam and plan: Yes Notes (Text): 10/19/16 12:53 61 year old female with past medical history of CAD, diabetes, hypertension, COPD and dyslipidemia who presented with left lower extremity cellulitis and ulceration. Continue with iv antibiotics as per ID. Wound culture is growing MRSA. Xray was negative. Doppler US was done with pending report. Podiatry evaluation is pending. Continue with insulin ss for diabetes. Hemoglobin A1c is pending. She is on lisinopril for hypertension and on aspirin, plavix and statin for history of CAD. Mame Matamoros MD Hospitalist.
[2016-10-19] MEDS: Sodium Chloride 0.9% 1,000 ML IV SCH ×2 (14:26→20:43)
--- NOTE | 2016-10-19 15:17 | CP.PCM.PN ---
Subjective - Date & Time of Evaluation Date of Evaluation: 10/19/16 Time of Evaluation: 10:30 - Subjective Subjective: Comfortable, not in distress, less pain in he left leg, no fevers overnight. Objective - Vital Signs/Intake and Output Vital Signs (last 24 hours): Temp Pulse Resp BP Pulse Ox 98.4 F 84 20 109/52 L 96 10/18/16 08:16 10/18/16 08:16 10/18/16 08:16 10/18/16 09:33 10/18/16 08:16 - Medications Medications: Current Medications Albuterol/Ipratropium (Duoneb 3 Mg/0.5 Mg (3 Ml) Ud) 3 ml IH [id number] PRN PRN Reason: Shortness of Breath Aspirin (Aspirin Chewable) 81 mg PO DAILY [facility] Last Admin: 10/18/16 09:34 Dose: 81 mg Atorvastatin Calcium (Lipitor) 20 mg PO DIN [facility] Clopidogrel Bisulfate (Plavix) 75 mg PO DAILY [facility] Last Admin: 10/18/16 09:33 Dose: 75 mg Heparin Sodium (Porcine) (Heparin) 5,000 units SC Q12 [facility] PRN Reason: Protocol Last Admin: 10/18/16 09:34 Dose: 5,000 units Sodium Chloride (Sodium Chloride 0.9%) 100 mls @ 75 mls/hr IV .[id number] [facility] Last Admin: 10/17/16 23:19 Dose: 75 mls/hr Linezolid (Zyvox 600mg/300ml D5w) 600 mg in 300 mls @ 200 mls/hr IVPB Q12 [facility] PRN Reason: Protocol Stop: 10/25/16 10:01 Last Admin: 10/18/16 09:31 Dose: 200 mls/hr Insulin Human Lispro (Humalog Low) 0 units SC ACHS [facility] PRN Reason: Protocol Last Admin: 10/18/16 13:00 Dose: 2 units Lisinopril (Zestril) 5 mg PO DAILY [facility] Last Admin: 10/18/16 09:33 Dose: Not Given Pantoprazole Sodium (Protonix Ec Tab) 40 mg PO 0600 [facility] - Labs Labs: 10/18/16 05:00 10/18/16 05:00 - Constitutional Appears: Non-toxic, No Acute Distress - Head Exam Head Exam: NORMAL INSPECTION - ENT Exam ENT Exam: Mucous Membranes Moist - Neck Exam Neck Exam: absent: Meningismus - Respiratory Exam Respiratory Exam: Decreased Breath Sounds - Cardiovascular Exam Cardiovascular Exam: +S1, +S2 - GI/Abdominal Exam GI & Abdominal Exam: Soft. absent: Tenderness - Extremities Exam Additional comments: left leg ulcer starting to dry up Assessment and Plan - Assessment and Plan (Free Text) Plan: Assessment infected left leg ulcer in a diabetic patient, with surrounding cellulitis, growing MRSA CAD S/P CABG (quadruple bypass) COPD DM asthma dyslipidemia HTN obesity with BMI 37 Plan continue Zyvox day 2; blood cx are negative;ESR and CRP are elevated; follow up doppler U/S to rule out peripheral vascular disease follow up Podiatry evaluation will check CT scan of the leg to rule out osteomyelitis will monitor clinically
[2016-10-19 16:54] VITALS: O2SAT 98
[2016-10-20] MEDS: Pantoprazole 40 mg EC Tab PO SCH (05:25)
[2016-10-20 06:55] LABS: HEMATOCRIT 32.6 % (36.0-48.0); MEAN CELL VOLUME 86.5 fl (80.0-105.0); MEAN CORPUSCULAR HEMOGLOBIN 26.5 pg (25.0-35.0); MEAN CORPUSCULAR HGB CONC 30.7 g/dl (31.0-37.0); MEAN PLATELET VOLUME 10.4 fl (7.0-11.0); RED CELL DISTRIBUTION WIDTH 14.5 % (11.5-14.5); WHITE BLOOD COUNT 6.5 10^3/ul (4.5-11.0)
[2016-10-20 06:57] LABS: ALB/GLOB RATIO 1.2 (1.1-1.8); ALKALINE PHOSPHATASE 106 U/L (38-126); ALT/SGPT 52 U/L (7-56); AST/SGOT 25 U/L (14-36); BILIRUBIN,TOTAL 1.4 mg/dL (0.2-1.3); BLOOD UREA NITROGEN 11 mg/dL (7-21); CALCIUM 8.6 mg/dL (8.4-10.5); CARBON DIOXIDE 26 mmol/L (21-33); CHLORIDE 104 mmol/L (98-107); GFR AFRICAN-AMERICAN > 60; GLUCOSE,RANDOM 111 mg/dL (70-110); MAGNESIUM 1.4 mg/dL (1.7-2.2); POTASSIUM 4.3 mmol/L (3.6-5.0); SODIUM 139 mmol/L (132-148)
[2016-10-20] MEDS ORDERED: Magnesium Sulfate 2 GM in Sodium Chloride 0.9% 100 ML IVPB ONE (07:29)
--- NOTE | 2016-10-20 07:34 | CP.PCM.PN ---
Subjective - Date & Time of Evaluation Date of Evaluation: 10/20/16 Time of Evaluation: 07:34 - Subjective Subjective: Rick Ohara DO, PGY-1, Hospitalist Service Patient seen and examined at bedside. Patient reports her wound was finally dressed after there was blood on the bed sheets from it. She admits to having a fever overnight. Objective - Vital Signs/Intake and Output Vital Signs (last 24 hours): Temp Pulse Resp BP Pulse Ox 99.1 F 81 20 111/49 L 98 10/19/16 17:50 10/19/16 17:50 10/19/16 17:50 10/19/16 17:50 10/19/16 17:50 Intake and Output: 10/20/16 10/20/16 06:59 18:59 Intake Total 480 Balance 480 - Medications Medications: Current Medications Albuterol/Ipratropium (Duoneb 3 Mg/0.5 Mg (3 Ml) Ud) 3 ml IH [id number] PRN PRN Reason: Shortness of Breath Aspirin (Aspirin Chewable) 81 mg PO DAILY [facility] Last Admin: 10/19/16 09:46 Dose: 81 mg Atorvastatin Calcium (Lipitor) 20 mg PO DIN [facility] Last Admin: 10/19/16 17:46 Dose: 20 mg Clopidogrel Bisulfate (Plavix) 75 mg PO DAILY [facility] Last Admin: 10/19/16 09:47 Dose: 75 mg Heparin Sodium (Porcine) (Heparin) 5,000 units SC Q12 [facility] PRN Reason: Protocol Last Admin: 10/19/16 21:51 Dose: 5,000 units Linezolid (Zyvox 600mg/300ml D5w) 600 mg in 300 mls @ 200 mls/hr IVPB Q12 [facility] PRN Reason: Protocol Stop: 10/25/16 10:01 Last Admin: 10/19/16 21:51 Dose: 200 mls/hr Sodium Chloride (Sodium Chloride 0.9%) 1,000 mls @ 75 mls/hr IV .[id number] [facility] Last Admin: 10/19/16 20:43 Dose: 75 mls/hr Magnesium Sulfate 2 gm/ Sodium (Chloride) 104 mls @ 102 mls/hr IVPB ONCE ONE Stop: 10/20/16 08:30 Insulin Human Lispro (Humalog Low) 0 units SC ACHS [facility] PRN Reason: Protocol Last Admin: 10/19/16 22:30 Dose: Not Given Lisinopril (Zestril) 5 mg PO DAILY [facility] Last Admin: 10/19/16 09:46 Dose: 5 mg Pantoprazole Sodium (Protonix Ec Tab) 40 mg PO 0600 [facility] Last Admin: 10/20/16 05:25 Dose: 40 mg - Labs Labs: 10/20/16 06:30 10/20/16 06:30 - Constitutional Appears: Non-toxic, No Acute Distress - Head Exam Head Exam: ATRAUMATIC, NORMOCEPHALIC - Eye Exam Eye Exam: EOMI, Normal appearance - ENT Exam ENT Exam: Mucous Membranes Moist, Normal Oropharynx - Neck Exam Neck Exam: Normal Inspection. absent: Thyromegaly - Respiratory Exam Respiratory Exam: Clear to Ausculation Bilateral. absent: Rales, Wheezes - Cardiovascular Exam Cardiovascular Exam: RRR, +S1, +S2 - GI/Abdominal Exam GI & Abdominal Exam: Soft, Normal Bowel Sounds. absent: Guarding, Rebound - Extremities Exam Additional comments: LE appear less red and swollen Assessment and Plan - Assessment and Plan (Free Text) Plan: 1) LLE Ulceration with Cellulitis - CT LLE ordered to rule out osteomyelitis - LLE US to rule out underlying DVT, performed, read pending. - Wound cultures of LLE grew MRSA, (Linezolid provides ample coverage, will defer antimicrobial recommendations per ID) - Patient had low-grade temperature that resolved spontaneously overnight - Per ID, Linezolid 600 mg IV q12h, day # 3 - Podiatry consulted, Dr. Ellis - ESR 26 and high sensitivity CRP 15 1a) Suspicion for PAD - Duplex Arterial US ordered 2) Diabetes Mellitus - HgbA1c still pending - ISS sliding scale, Fingerstick ACHS 3) Hypertension - Metoporol 25 BID starting today, patient tolerated this medication in the past. - Lisinopril 5 mg 4) CAD with CABG - Aspirin 81mg - Plavix 75mg - Lipitor 20mg 5) COPD/Asthma - Duoneb PRN 6) DVT/GI prophylaxis - Heparin 5,000 U q12h, Protonix 40 mg PO daily Patient reviewed and discussed with attending, Dr. Pineda.
[2016-10-20] MEDS: Insulin Lispro (humaLOG) LOW Coverage SC SCH ×2 (08:13→12:31)
[2016-10-20 08:17] VITALS: BP 92/47; PULSE 77; RESP 18; TEMP 98.6
[2016-10-20] MEDS: Linezolid 600 mg in D5W 300 ml 600 MG/300 ML BAG IVPB SCH (09:06)
--- NOTE | 2016-10-20 09:47 | CT ---
PROCEDURE: CT of the left lower extremity without contrast HISTORY: rule out tibial ostemyelitis COMPARISON: TECHNIQUE: CT was performed in the axial plane with sagittal and coronal reconstructions. FINDINGS: There is no evidence of bony destruction to suggest osteomyelitis. There is no muscular abscess or edema. There is minimal subcutaneous edema anteriorly. IMPRESSION: Negative study
--- NOTE | 2016-10-20 09:49 | US ---
HISTORY: Leg pain and swelling. Evaluate for DVT PHYSICIAN(S): Chava Dash MD. TECHNIQUE: Duplex sonography and color-flow Doppler with graded compression were used to evaluate the deep venous systems of both lower extremities. FINDINGS: The visualized deep venous systems of both lower extremities are sonographically normal and compressible. Normal wave forms and augmentation are seen. There is no sonographic evidence for deep venous thrombosis in the visualized segments of both lower extremities. IMPRESSION: No sonographic evidence for deep venous thrombosis in the visualized segments of both lower extremities.
--- NOTE | 2016-10-20 13:36 | CP.PCM.PN ---
Subjective - Date & Time of Evaluation Date of Evaluation: 10/20/16 Time of Evaluation: 11:00 - Subjective Subjective: Comfortable, less pain in the left leg, had an episode of 100.5 F temp which did not persist. Objective - Vital Signs/Intake and Output Vital Signs (last 24 hours): Temp Pulse Resp BP Pulse Ox 98 F 79 19 145/53 L 95 10/19/16 07:50 10/19/16 09:46 10/19/16 07:50 10/19/16 09:46 10/19/16 07:50 Intake and Output: 10/19/16 10/19/16 06:59 18:59 Intake Total 780 Balance 780 - Medications Medications: Current Medications Albuterol/Ipratropium (Duoneb 3 Mg/0.5 Mg (3 Ml) Ud) 3 ml IH [id number] PRN PRN Reason: Shortness of Breath Aspirin (Aspirin Chewable) 81 mg PO DAILY [facility] Last Admin: 10/19/16 09:46 Dose: 81 mg Atorvastatin Calcium (Lipitor) 20 mg PO DIN [facility] Last Admin: 10/18/16 17:26 Dose: 20 mg Clopidogrel Bisulfate (Plavix) 75 mg PO DAILY [facility] Last Admin: 10/19/16 09:47 Dose: 75 mg Heparin Sodium (Porcine) (Heparin) 5,000 units SC Q12 [facility] PRN Reason: Protocol Last Admin: 10/19/16 09:47 Dose: 5,000 units Linezolid (Zyvox 600mg/300ml D5w) 600 mg in 300 mls @ 200 mls/hr IVPB Q12 [facility] PRN Reason: Protocol Stop: 10/25/16 10:01 Last Admin: 10/19/16 09:46 Dose: 200 mls/hr Sodium Chloride (Sodium Chloride 0.9%) 1,000 mls @ 75 mls/hr IV .[id number] [facility] Last Admin: 10/18/16 18:19 Dose: 75 mls/hr Insulin Human Lispro (Humalog Low) 0 units SC ACHS [facility] PRN Reason: Protocol Last Admin: 10/19/16 12:24 Dose: 1 units Lisinopril (Zestril) 5 mg PO DAILY [facility] Last Admin: 10/19/16 09:46 Dose: 5 mg Pantoprazole Sodium (Protonix Ec Tab) 40 mg PO 0600 [facility] Last Admin: 10/19/16 05:49 Dose: 40 mg - Labs Labs: 10/18/16 05:00 10/18/16 05:00 - Constitutional Appears: Non-toxic, No Acute Distress - Head Exam Head Exam: NORMAL INSPECTION - ENT Exam ENT Exam: Mucous Membranes Moist - Neck Exam Neck Exam: absent: Meningismus - Respiratory Exam Respiratory Exam: Decreased Breath Sounds - Cardiovascular Exam Cardiovascular Exam: +S1, +S2 - GI/Abdominal Exam GI & Abdominal Exam: Soft. absent: Tenderness - Extremities Exam Additional comments: left leg with dry dressings in place Assessment and Plan - Assessment and Plan (Free Text) Plan: Assessment infected left leg ulcer in a diabetic patient, with surrounding cellulitis, growing MRSA, slowly improving CAD S/P CABG (quadruple bypass) COPD DM asthma dyslipidemia HTN obesity with BMI 37 Plan continue Zyvox day 3; blood cx are negative; ESR and CRP are elevated; follow up doppler U/S to rule out peripheral vascular disease follow up Podiatry evaluation will check CT leg does not show osteomyelitis - should target 7-10 days of therapy
--- NOTE | 2016-10-20 16:16 | CP.PCM.CON ---
History of Present Illness - History of Present Illness History of Present Illness: Podiatry Consult Note - Dr. Guzman 61 year old female patient PMHx CAD s/p CABG x4, [place] in 2013, DM, COPD, Asthma, HTN, and HLD seen at bedside with Dr. Guzman for painful left leg ulceration + cellulitis. Patient seen at bedside resting comfortably, AAOx3 and NAD. Patient denies any acute events overnight. Patient states she has had the wound on the front of her left hay for 1 month. Patient states she went to [facility] to receive treatment; there she was given a prescription for antibiotics but it was never filled as she did not have insurance. Patient states the wound had a moderate amount of drainage but it has since decreased upon this admission. Patient admits to 06/18 pain to her left hay. Patient denies N/V/F/D/C/SOB/calf pain. No other pedal complaints at this time. Review of Systems - Review of Systems All systems: reviewed and no additional remarkable complaints except (as per HPI ) Past Patient History - Infectious Disease Hx of Infectious Diseases: None - Past Social History Smoking Status: Never Smoked - CARDIAC Hx Heart Attack: Yes (2012) Hx Hypertension: Yes - PULMONARY Hx Asthma: Yes Hx Chronic Obstructive Pulmonary Disease (COPD): Yes - ENDOCRINE/METABOLIC Hx Diabetes Mellitus Type 2: Yes - MUSCULOSKELETAL/RHEUMATOLOGICAL Hx Falls: No - PSYCHIATRIC Hx Substance Use: No - SURGICAL HISTORY Other/Comment: by-pass both legs - ANESTHESIA Hx Anesthesia Reactions: No Hx Malignant Hyperthermia: No Meds Home Medications: Home Medication List Medication Instructions Recorded Confirmed Type Aspirin [Aspirin Chewable] 81 mg PO DAILY 10/20/16 Rx Atorvastatin [Lipitor] 20 mg PO DIN tab 10/20/16 Rx Clopidogrel [Plavix] 75 mg PO DAILY tab 10/20/16 Rx Linezolid [Zyvox] 600 mg PO Q12 #14 tab 10/20/16 Rx Lisinopril [Zestril] 5 mg PO DAILY tab 10/20/16 Rx Metoprolol Tartrate [Lopressor] 25 mg PO BID tab 10/20/16 Rx Allergies/Adverse Reactions: Allergies Allergy/AdvReac Type Severity Reaction Status Date / Time No Known Allergies Allergy Verified 10/17/16 17:04 - Medications Medications: Current Medications Albuterol/Ipratropium (Duoneb 3 Mg/0.5 Mg (3 Ml) Ud) 3 ml IH [id number] PRN PRN Reason: Shortness of Breath Aspirin (Aspirin Chewable) 81 mg PO DAILY [facility] Last Admin: 10/20/16 09:06 Dose: 81 mg Atorvastatin Calcium (Lipitor) 20 mg PO DIN [facility] Last Admin: 10/19/16 17:46 Dose: 20 mg Clopidogrel Bisulfate (Plavix) 75 mg PO DAILY [facility] Last Admin: 10/20/16 09:06 Dose: 75 mg Heparin Sodium (Porcine) (Heparin) 5,000 units SC Q12 [facility] PRN Reason: Protocol Last Admin: 10/20/16 09:06 Dose: 5,000 units Linezolid (Zyvox 600mg/300ml D5w) 600 mg in 300 mls @ 200 mls/hr IVPB Q12 [facility] PRN Reason: Protocol Stop: 10/25/16 10:01 Last Admin: 10/20/16 09:06 Dose: 200 mls/hr Sodium Chloride (Sodium Chloride 0.9%) 1,000 mls @ 75 mls/hr IV .[id number] [facility] Last Admin: 10/19/16 20:43 Dose: 75 mls/hr Insulin Human Lispro (Humalog Low) 0 units SC ACHS [facility] PRN Reason: Protocol Last Admin: 10/20/16 12:31 Dose: 1 units Lisinopril (Zestril) 5 mg PO DAILY [facility] Last Admin: 10/20/16 09:06 Dose: 5 mg Metoprolol Tartrate (Lopressor) 25 mg PO BID [facility] Last Admin: 10/20/16 09:06 Dose: 25 mg Pantoprazole Sodium (Protonix Ec Tab) 40 mg PO 0600 [facility] Last Admin: 10/20/16 05:25 Dose: 40 mg Physical Exam - Constitutional Appears: Well, Non-toxic, No Acute Distress - Extremities Exam Additional comments: LLE focused physical exam Optifoam dressing to anterior left leg appears clean/dry/intact with no strikethrough noted Vasc: DP and PT pulses weakly palpable 1/4. TG WNL. Edema noted to RLE Neuro: Gross sensation diminished Derm: Ulceration noted to anterior mid leg measuring approximately 3-4cm in diameter. Moderate serosanguinous drainage noted. No tunneling, undermining, fluctuance noted. Mild malodor noted. Erythema noted periwound. Ortho: Tenderness to palpation left anterior leg wound - Neurological Exam Neurological exam: Alert, Oriented x3 - Psychiatric Exam Psychiatric exam: Normal Affect, Normal Mood Results - Vital Signs Recent Vital Signs: Last Vital Signs Temp 98.6 F 10/20/16 08:16 Pulse 77 10/20/16 08:16 Resp 18 10/20/16 08:16 BP 92/47 L 10/20/16 08:16 Pulse Ox 98 10/20/16 08:16 - Labs Result Diagrams: 10/20/16 06:30 10/20/16 06:30 Labs: Laboratory Results - last 24 hr 10/18/16 10/19/16 10/19/16 05:00 17:04 21:59 WBC RBC Hgb Hct MCV MCH MCHC RDW Plt Count MPV Sodium Potassium Chloride Carbon Dioxide Anion Gap BUN Creatinine Est GFR ( Amer) Est GFR (Non-Af Amer) POC Glucose (mg/dL) 127 H 98 Random Glucose Hemoglobin A1c 7.7 H Calcium Magnesium Total Bilirubin AST ALT Alkaline Phosphatase Total Protein Albumin Globulin Albumin/Globulin Ratio 10/20/16 10/20/16 10/20/16 06:30 06:30 07:10 WBC 6.5 RBC 3.77 Hgb 10.0 L Hct 32.6 L MCV 86.5 MCH 26.5 MCHC 30.7 L RDW 14.5 Plt Count 184 MPV 10.4 Sodium 139 Potassium 4.3 Chloride 104 Carbon Dioxide 26 Anion Gap 13 BUN 11 Creatinine 1.0 Est GFR ( Amer) > 60 Est GFR (Non-Af Amer) 57 POC Glucose (mg/dL) 131 H Random Glucose 111 H Hemoglobin A1c Calcium 8.6 Magnesium 1.4 L Total Bilirubin 1.4 H AST 25 ALT 52 Alkaline Phosphatase 106 Total Protein 6.0 Albumin 3.3 Globulin 2.7 Albumin/Globulin Ratio 1.2 10/20/16 11:20 WBC RBC Hgb Hct MCV MCH MCHC RDW Plt Count MPV Sodium Potassium Chloride Carbon Dioxide Anion Gap BUN Creatinine Est GFR ( Amer) Est GFR (Non-Af Amer) POC Glucose (mg/dL) 150 H Random Glucose Hemoglobin A1c Calcium Magnesium Total Bilirubin AST ALT Alkaline Phosphatase Total Protein Albumin Globulin Albumin/Globulin Ratio Assessment & Plan - Assessment and Plan (Free Text) Assessment: 61 year old female with anterior left leg ulceration + cellulitis Plan: Patient seen and evaluated at bedside with Dr. Guzman Chart, vitals, labs reviewed = afebrile (mild increase yesterday 10/19 at 100.5F , WNL today @ 98.6F), WBC WNL @ 6.5 L tibia/fibular XR reviewed = unremarkable LLE CT reviewed = unremarkable L hay abscess wound cx reviewed = MRSA Left anterior leg wound cleansed with normal sterile saline and hydrogel appilied to wound. Wound dressed with 4x4 gauze, ABD, and kerlix Wound culture obtained from anterior left leg ulceration Continue abx per medicine = linezolid Podiatry will continue to follow while in house
--- NOTE | 2016-10-20 20:23 | CP.PCM.DIS ---
<Rick Ohara - Last Filed: 10/20/16 20:14> Provider - Provider Date of Admission: 10/17/16 19:10 Attending physician: Mame Matamoros MD Primary care physician: Dr. Robles Consults: Dr. Duarte Time Spent in preparation of Discharge (in minutes): 33 Hospital Course - Lab Results Lab Results: Micro Results 10/20/16 14:01 Leg - Left Gram Stain - Final Most Recent Lab Values WBC 6.5 10^3/ul (4.5-11.0) 10/20/16 06:30 RBC 3.77 10^6/uL (3.5-6.1) 10/20/16 06:30 Hgb 10.0 g/dL (12.0-16.0) L 10/20/16 06:30 Hct 32.6 % (36.0-48.0) L 10/20/16 06:30 MCV 86.5 fl (80.0-105.0) 10/20/16 06:30 MCH 26.5 pg (25.0-35.0) 10/20/16 06:30 MCHC 30.7 g/dl (31.0-37.0) L 10/20/16 06:30 RDW 14.5 % (11.5-14.5) 10/20/16 06:30 Plt Count 184 10^3/uL (120.0-450.0) 10/20/16 06:30 MPV 10.4 fl (7.0-11.0) 10/20/16 06:30 Gran % 78.9 % (50.0-68.0) H 10/18/16 05:00 Lymph % (Auto) 13.9 % (22.0-35.0) L 10/18/16 05:00 Rice % (Auto) 5.3 % (1.0-6.0) 10/18/16 05:00 Eos % (Auto) 1.7 % (1.5-5.0) 10/18/16 05:00 Baso % (Auto) 0.2 % (0.0-3.0) 10/18/16 05:00 Gran # 4.60 (1.4-6.5) 10/18/16 05:00 Lymph # 0.8 (1.2-3.4) L 10/18/16 05:00 Rice # 0.3 (0.1-0.6) 10/18/16 05:00 Eos # 0.1 (0.0-0.7) 10/18/16 05:00 Baso # 0.01 K/mm3 (0.0-2.0) 10/18/16 05:00 ESR 26 mm/hr (0.0-20.0) H 10/18/16 11:00 Sodium 139 mmol/L (132-148) 10/20/16 06:30 Potassium 4.3 mmol/L (3.6-5.0) 10/20/16 06:30 Chloride 104 mmol/L (98-107) 10/20/16 06:30 Carbon Dioxide 26 mmol/L (21-33) 10/20/16 06:30 Anion Gap 13 (10-20) 10/20/16 06:30 BUN 11 mg/dL (7-21) 10/20/16 06:30 Creatinine 1.0 mg/dL (0.5-1.4) 10/20/16 06:30 Est GFR ( Amer) > 60 10/20/16 06:30 Est GFR (Non-Af Amer) 57 10/20/16 06:30 POC Glucose (mg/dL) 150 mg/dL (65-110) H 10/20/16 11:20 Random Glucose 111 mg/dL (70-110) H 10/20/16 06:30 Hemoglobin A1c 7.7 % (4.2-6.5) H 10/18/16 05:00 Calcium 8.6 mg/dL (8.4-10.5) 10/20/16 06:30 Phosphorus 4.4 mg/dL (2.5-4.5) 10/18/16 05:00 Magnesium 1.4 mg/dL (1.7-2.2) L 10/20/16 06:30 Total Bilirubin 1.4 mg/dL (0.2-1.3) H 10/20/16 06:30 AST 25 U/L (14-36) 10/20/16 06:30 ALT 52 U/L (7-56) 10/20/16 06:30 Alkaline Phosphatase 106 U/L (38-126) 10/20/16 06:30 C-React Prot High Sens > 15.00 mg/L (1.00-3.00) H 10/18/16 11:50 Total Protein 6.0 g/dL (5.8-8.3) 10/20/16 06:30 Albumin 3.3 g/dL (3.0-4.8) 10/20/16 06:30 Globulin 2.7 gm/dL 10/20/16 06:30 Albumin/Globulin Ratio 1.2 (1.1-1.8) 10/20/16 06:30 - Hospital Course Hospital Course: 61 year old female with a past medical history of CABG, DM II, CHF, hypothyroidism, and non-compliance with medication likely secondary to lack of insurance and poor social circumstances who present 1 month of LLE ulcer that had started to bleed in the last week or so. She was admitted for cellulitis and treated with IV Linezolid, podiatric care, and medical management of her other comorbid conditions. Radiographs and CT of the LLE showed no evidence of osteomyelitis, nor did doppler US show any evidence of peripheral arterial disease or DVT in the affected lower extremity. Patient was discharged on PO Zyvox with follow up instructions as noted below. - Date & Time of H&P Date of H&P: 10/20/16 Time of H&P: 20:23 Discharge Exam - Head Exam Head Exam: NORMAL INSPECTION - Eye Exam Eye Exam: EOMI, Normal appearance, PERRL - ENT Exam ENT Exam: Mucous Membranes Moist, Normal Oropharynx - Neck Exam Neck exam: Normal Inspection - Respiratory Exam Respiratory Exam: Clear to PA & Lateral, NORMAL BREATHING PATTERN - Cardiovascular Exam Cardiovascular Exam: RRR, +S1, +S2 - GI/Abdominal Exam GI & Abdominal Exam: Normal Bowel Sounds. absent: Distended, Guarding, Rebound - Extremities Exam Additional comments: anterior hay ulcer is covered, banadaged, no blood - Back Exam Back exam: NORMAL INSPECTION. absent: CVA tenderness (L), CVA tenderness (R) - Neurological Exam Neurological exam: Alert, CN II-XII Intact, Normal Gait, Oriented x3 - Psychiatric Exam Psychiatric exam: Normal Affect, Normal Mood - Skin Skin Exam: Dry, Intact, Normal Color, Warm Discharge Plan - Discharge Medications Prescriptions: Linezolid [Zyvox] 600 mg PO Q12 #14 tab - Follow Up Plan Condition: STABLE Disposition: HOME/ ROUTINE Instructions: Cellulitis (ED), Cellulitis (DC), Cellulitis (GEN) Additional Instructions: - Please take the antibiotic prescribed twice a day for 7 more days - Please follow up with your primary care doctor. - Continue the rest of your medications as prescribed. - Please follow up with podiatry for wound care/foot care. - Please go to the nearest emergency room if the wound continue to worsens or doesn't improve after the antibiotics, or if you have fever. Referrals: [facility] at [facility] [Outside] Cony Guzman DPM [Staff Provider] - <Miriam MILLER,[facility] - Last Filed: 10/21/16 15:55> Provider - Provider Date of Admission: 10/17/16 19:10 Attending physician: Mame Matamoros MD Hospital Course - Lab Results Lab Results: Micro Results 10/20/16 14:01 Leg - Left Gram Stain - Final 10/20/16 14:01 Leg - Left Wound Culture - Preliminary Staphylococcus Aureus Gram Negative Isidro Most Recent Lab Values WBC 6.5 10^3/ul (4.5-11.0) 10/20/16 06:30 RBC 3.77 10^6/uL (3.5-6.1) 10/20/16 06:30 Hgb 10.0 g/dL (12.0-16.0) L 10/20/16 06:30 Hct 32.6 % (36.0-48.0) L 10/20/16 06:30 MCV 86.5 fl (80.0-105.0) 10/20/16 06:30 MCH 26.5 pg (25.0-35.0) 10/20/16 06:30 MCHC 30.7 g/dl (31.0-37.0) L 10/20/16 06:30 RDW 14.5 % (11.5-14.5) 10/20/16 06:30 Plt Count 184 10^3/uL (120.0-450.0) 10/20/16 06:30 MPV 10.4 fl (7.0-11.0) 10/20/16 06:30 Gran % 78.9 % (50.0-68.0) H 10/18/16 05:00 Lymph % (Auto) 13.9 % (22.0-35.0) L 10/18/16 05:00 Rice % (Auto) 5.3 % (1.0-6.0) 10/18/16 05:00 Eos % (Auto) 1.7 % (1.5-5.0) 10/18/16 05:00 Baso % (Auto) 0.2 % (0.0-3.0) 10/18/16 05:00 Gran # 4.60 (1.4-6.5) 10/18/16 05:00 Lymph # 0.8 (1.2-3.4) L 10/18/16 05:00 Rice # 0.3 (0.1-0.6) 10/18/16 05:00 Eos # 0.1 (0.0-0.7) 10/18/16 05:00 Baso # 0.01 K/mm3 (0.0-2.0) 10/18/16 05:00 ESR 26 mm/hr (0.0-20.0) H 10/18/16 11:00 Sodium 139 mmol/L (132-148) 10/20/16 06:30 Potassium 4.3 mmol/L (3.6-5.0) 10/20/16 06:30 Chloride 104 mmol/L (98-107) 10/20/16 06:30 Carbon Dioxide 26 mmol/L (21-33) 10/20/16 06:30 Anion Gap 13 (10-20) 10/20/16 06:30 BUN 11 mg/dL (7-21) 10/20/16 06:30 Creatinine 1.0 mg/dL (0.5-1.4) 10/20/16 06:30 Est GFR ( Amer) > 60 10/20/16 06:30 Est GFR (Non-Af Amer) 57 10/20/16 06:30 POC Glucose (mg/dL) 150 mg/dL (65-110) H 10/20/16 11:20 Random Glucose 111 mg/dL (70-110) H 10/20/16 06:30 Hemoglobin A1c 7.7 % (4.2-6.5) H 10/18/16 05:00 Calcium 8.6 mg/dL (8.4-10.5) 10/20/16 06:30 Phosphorus 4.4 mg/dL (2.5-4.5) 10/18/16 05:00 Magnesium 1.4 mg/dL (1.7-2.2) L 10/20/16 06:30 Total Bilirubin 1.4 mg/dL (0.2-1.3) H 10/20/16 06:30 AST 25 U/L (14-36) 10/20/16 06:30 ALT 52 U/L (7-56) 10/20/16 06:30 Alkaline Phosphatase 106 U/L (38-126) 10/20/16 06:30 C-React Prot High Sens > 15.00 mg/L (1.00-3.00) H 10/18/16 11:50 Total Protein 6.0 g/dL (5.8-8.3) 10/20/16 06:30 Albumin 3.3 g/dL (3.0-4.8) 10/20/16 06:30 Globulin 2.7 gm/dL 10/20/16 06:30 Albumin/Globulin Ratio 1.2 (1.1-1.8) 10/20/16 06:30 Attending/Attestation - Attestation I have personally seen and examined this patient.: Yes I have fully participated in the care of the patient.: Yes I have reviewed all pertinent clinical information, including history, physical exam and plan: Yes Notes (Text): 10/21/16 15:52 Patient was seen and examined with medical language specialist. Agreed with resident assessment and plan. 61 year old female with past medical history of CAD, diabetes, hypertension, COPD and dyslipidemia who presented with left lower extremity cellulitis and ulceration, found to have MRSA on wound, CT of leg is negative for any bony involvement.Patient is afebrile, redness and swelling has improved.She will be discharged home on oral Linzolid . Management plan was discussed in detail with patient Education was provided. 10/21/16 15:55
--- NOTE | 2016-10-20 20:31 | US ---
PROCEDURE: Lower extremity JOE exam HISTORY: Peripheral vascular disease with pain and ulceration. PHYSICIAN(S): Chava Dash MD. FINDINGS: The exam is limited by body habitus and calcified vessels. The right resting JOE is abnormally elevated, 1.52. The left resting JOE is also inaccurate, 0.96 The brachial systolic pressures are symmetric. The high thigh pressures are noncompressible. The low thigh PVR waveforms are relatively normal and symmetric. The calf PVR waveforms augment normally and are relatively normal and symmetric. The ankle and metatarsal waveforms are mildly blunted but pulsatile. This is consistent with bilateral tibial disease IMPRESSION: 1. Limited study. 2. Bilateral tibial disease. The distal waveforms are pulsatile.
== END 2016-10-20 18:00 | disposition home or self-care (01) | DRG 277 ==
LOC: ED 16:55 → ERH 19:10 → 3RNO 22:00
PROVIDERS: ADMIT Internal Medicine; ATTEND Internal Medicine
DX: L03.116 Cellulitis of left lower limb (principal); E11.622 Type 2 diabetes mellitus with other skin ulcer; I50.9 Heart failure, unspecified; I11.0 Hypertensive heart disease with heart failure; L97.929 Non-pressure chronic ulcer of unspecified part of left lower leg with unspecified severity; J44.9 Chronic obstructive pulmonary disease, unspecified; I25.10 Atherosclerotic heart disease of native coronary artery without angina pectoris; B95.62 Methicillin resistant Staphylococcus aureus infection as the cause of diseases classified elsewhere; E78.5 Hyperlipidemia, unspecified; I25.2 Old myocardial infarction; E66.9 Obesity, unspecified; Z68.37 Body mass index [BMI] 37.0-37.9, adult; Z95.1 Presence of aortocoronary bypass graft

== ENCOUNTER 2018-07-06 12:16 | Inpatient (IN) | payer MEDICAID, OTHER ==
[2018-07-06 13:20] VITALS: BMI 32.3
--- NOTE | 2018-07-06 15:23 | ED PDOC ---
Arrival/HPI - General Historian: Patient - History of Present Illness Narrative History of Present Illness (Text): 07/06/18 15:33 Pt is a 62 yo female with a PMH of CABG, CAD, cardiac stents, CHF, HTN, DM, HLD, COPD/asthma, and cellulitis who presents to the ED after being refered here by her PMD for a lesion on the posterior aspect of her left leg. Pt reports a temperature of 101F, draining pus from her wound, and throbbing pain. Denies seeing red streaks. Time/Duration: > week Symptom Onset: Gradual Symptom Course: Worsening Quality: Throbbing Severity Level: 4 Activities at Onset: Rest Context: Sitting <Wong Madden - Last Filed: 07/06/18 16:43> <Ifeanyi Espitia - Last Filed: 07/06/18 17:03> - General Chief Complaint: Abnormal Skin Integrity Past Medical History - Provider Review Primary Care Provider: Non [facility] Provider, - Infectious Disease Hx of Infectious Diseases: None - Tetanus Immunization Tetanus Immunization: Unknown - Reproductive Menopause: Yes - Cardiac Hx Congestive Heart Failure: Yes Hx Hypertension: Yes Hx Pacemaker: No Hx Peripheral Edema: Yes - Pulmonary Hx Asthma: Yes Hx Chronic Obstructive Pulmonary Disease (COPD): Yes Hx Pneumonia: Yes - Neurological Hx Neurological Disorder: No - HEENT Hx HEENT Disorder: No - Renal Hx Renal Disorder: No - Endocrine/Metabolic Hx Hypothyroidism: Yes - Hematological/Oncological Hx Anemia: No - Integumentary Hx Dermatological Disorder: Yes Hx Cellulitis: Yes (Chronic Lower extremity cellulits) Other/Comment: Hx Chronic (venous stasis) leg ulcers - Musculoskeletal/Rheumatological Hx Arthritis: Yes - Gastrointestinal Hx Gastrointestinal Disorders: No - Genitourinary/Gynecological Hx Genitourinary Disorders: No - Psychiatric Hx Psychophysiologic Disorder: No Hx Substance Use: No - Surgical History Hx Coronary Artery Bypass Graft: Yes Hx Tonsillectomy: Yes - Anesthesia Hx Anesthesia: Yes Hx Anesthesia Reactions: No Hx Malignant Hyperthermia: No - Suicidal Assessment Feels Threatened In Home Enviroment: No <Wong Madden - Last Filed: 07/06/18 16:43> Family/Social History Family/Social History: Hypertension Smoking Status: Unknown If Ever Smoked Hx Alcohol Use: No Hx Substance Use: No <Wong Madden - Last Filed: 07/06/18 16:43> Allergies/Home Meds <Wong Madden - Last Filed: 07/06/18 16:43> <Ifeanyi Espitia - Last Filed: 07/06/18 17:03> Allergies/Adverse Reactions: Allergies No Known Allergies Allergy (Verified 06/05/18 17:59) Home Medications: Home Meds Medication Instructions Recorded Confirmed Aspirin [Ecotrin] 81 mg PO DAILY 06/05/18 06/05/18 Atorvastatin [Lipitor] 10 mg PO DAILY 06/05/18 06/05/18 Beclomethasone Dipropionate [Qvar 10.6 gm IH DAILY 06/05/18 06/05/18 Redihaler] Cetirizine HCl [All Day Allergy 10 mg PO DAILY 06/05/18 06/05/18 Relief] Clopidogrel [Plavix] 75 mg PO DAILY 06/05/18 06/05/18 Metformin HCl [Glucophage] 500 mg PO BID 06/05/18 06/05/18 Metoprolol Succinate 50 mg PO DAILY 06/05/18 06/05/18 Montelukast Sodium [Singulair] 10 mg PO DAILY 06/05/18 06/05/18 Review of Systems - Review of Systems Constitutional: Fevers Eyes: Normal ENT: Normal Respiratory: Normal Cardiovascular: Normal Gastrointestinal: Normal Genitourinary Female: Normal Musculoskeletal: Normal Skin: Normal Neurological: Normal Endocrine: Normal Hemo/Lymphatic: Normal Psychiatric: Normal <Wong Madden - Last Filed: 07/06/18 16:43> Physical Exam Vital Signs Reviewed: Yes Vital Signs Temp Pulse Resp BP Pulse Ox 07/06/18 13:17 97.5 F L 80 18 145/73 96 Temperature: Afebrile Blood Pressure: Normal Pulse: Regular Respiratory Rate: Normal Appearance: Positive for: Well-Appearing Mental Status: Positive for: Alert and Oriented X 3 - Systems Exam Head: Present: Atraumatic, Normocephalic Pupils: Present: PERRL Extroacular Muscles: Present: EOMI Mouth: Present: Moist Mucous Membranes Neck: Present: Normal Range of Motion Respiratory/Chest: Present: Clear to Auscultation, Good Air Exchange. No: Resp iratory Distress, Accessory Muscle Use Cardiovascular: Present: Regular Rate and Rhythm, Normal S1, S2 Abdomen: Present: Normal Bowel Sounds. No: Tenderness, Distention Upper Extremity: Present: Normal Inspection Lower Extremity: Present: Edema, Normal ROM, Tenderness, Other (1cm x1cm lesion on the posterior aspect of her left calf) Neurological: Present: GCS=15, CN II-XII Intact Skin: Present: Other (lesion on left calf, BL edema) Psychiatric: Present: Alert, Oriented x 3 <Wong Maddne - Last Filed: 07/06/18 16:43> Vital Signs Temp Pulse Resp BP Pulse Ox 07/06/18 13:17 97.5 F L 80 18 145/73 96 <Ifeanyi Espitia - Last Filed: 07/06/18 17:03> Medical Decision Making ED Course and Treatment: 07/06/18 15:42 CBC CMP 07/06/18 16:42 rocephin for cellulitis blood cultures Spoke with Dr Robles on the phone, admit pt to Dr Robles service Pt seen, examined, assessment, and plan discussed with Dr Nupur Madden PGY1 <Wong Madden - Last Filed: 07/06/18 16:43> ED Course and Treatment: 07/06/18 15:46 Seen and examined with the resident. Our history and physical exam reveals a woman complaining of a left calf ulcer. The ulcer has been present for 1 to several weeks. She was seen in the emergency department several days ago for different complaints and the examination of the ulcer at that time appears to be unchanged. She was seen in the office today by her PMD , and directed to the emergency department. <Ifeanyi Espitia - Last Filed: 07/06/18 17:03> - PA / DIGITAL CONTENT MANAGER / Resident Statement HAVEN has reviewed & agrees with the documentation as recorded. HAVEN has examined the patient and agrees with the treatment plan. <Wong Madden - Last Filed: 07/06/18 16:43> Disposition/Present on Arrival - Present on Arrival Any Indicators Present on Arrival: No History of DVT/PE: No History of Uncontrolled Diabetes: No Urinary Catheter: No History of Decub. Ulcer: No History Surgical Site Infection Following: None - Disposition Have Diagnosis and Disposition been Completed?: Yes Disposition Time: 16:44 Patient Plan: Admission <Wong Madden - Last Filed: 07/06/18 16:43> - Present on Arrival Any Indicators Present on Arrival: No History of DVT/PE: No History of Uncontrolled Diabetes: No Urinary Catheter: No History of Decub. Ulcer: No - Disposition Have Diagnosis and Disposition been Completed?: Yes Patient Plan: Observation <Ifeanyi Espitia - Last Filed: 07/06/18 17:03> - Disposition Diagnosis: Ulcer, Cellulitis, Wound infection, Chronic cutaneous venous stasis ulcer, Stasis dermatitis of both legs, Bilateral lower leg cellulitis Disposition: HOSPITALIZED Patient Problems: Current Active Problems Problem Status Onset Ulcer Acute Condition: GOOD Discharge Instructions (ExitCare): Cellulitis (ED) Forms: [facility] (Gu[place]ian)
[2018-07-06 16:00] LABS: BASO # 0.01 K/mm3 (0.0-2.0); BASO % 0.2 % (0.0-3.0); EOS # 0.2 (0.0-0.7); EOS % 3.1 % (1.5-5.0); HEMOGLOBIN 10.4 g/dL (12.0-16.0); LYMPH # 1.1 (1.2-3.4); LYMPH % 20.5 % (22.0-35.0); MEAN CELL VOLUME 92.2 fl (80.0-105.0); MEAN CORPUSCULAR HEMOGLOBIN 28.1 pg (25.0-35.0); MEAN CORPUSCULAR HGB CONC 30.5 g/dl (31.0-37.0); MEAN PLATELET VOLUME 10.9 fl (7.0-11.0); MONO # 0.2 (0.1-0.6); MONO % 4.2 % (1.0-6.0); RBC 3.7 10^6/uL (3.5-6.1); RED CELL DISTRIBUTION WIDTH 14.7 % (11.5-14.5); WHITE BLOOD COUNT 5.2 10^3/uL (4.5-11.0)
[2018-07-06 16:06] LABS: ALB/GLOB RATIO 1.3 (1.1-1.8); ALBUMIN 3.8 g/dL (3.0-4.8); ALT/SGPT 18 U/L (7-56); AST/SGOT 20 U/L (14-36); BLOOD UREA NITROGEN 18 mg/dL (7-21); CALCIUM 9.4 mg/dL (8.4-10.5); GFR NON-AFRICAN AMERICAN 56
[2018-07-06] MEDS ORDERED: cefTRIAXone 1 gm 1 GM/100 ML BAG IVPB SCH (16:45)
[2018-07-06 20:53] LABS: IRON 37 ug/dL (45-180)
[2018-07-06 21:01] LABS: TOTAL IRON BINDING CAPACITY 276 ug/dL (265-497)
[2018-07-06 21:24] LABS: % IRON SATURATION 13 % (20-55)
[2018-07-06] MEDS: Albuterol-Ipratrop 3 mg / 0.5 (3 ml) UD IH SCH (21:25)
[2018-07-06] MEDS ORDERED: VANCOMYCIN 750 MG IVPB SCH (22:00)
[2018-07-06] MEDS: Vancomycin 750mg 750 MG/250 ML BAG IVPB SCH (22:21)
[2018-07-06] MEDS: Insulin Reg-LOW-Coverage SC SCH (22:22)
[2018-07-07] MEDS ORDERED: TAZO IVPB SCH
[2018-07-07] MEDS ORDERED: DEX IVPB SCH
[2018-07-07] MEDS ORDERED: PIPERACILL IVPB SCH
[2018-07-07] MEDS: Albuterol-Ipratrop 3 mg / 0.5 (3 ml) UD IH SCH ×4 (02:00→19:26)
[2018-07-07] MEDS: Piperacillin/Tazobact 3.375 gm 100 ML IVPB SCH ×5 (02:05→23:33)
[2018-07-07 07:28] LABS: BLOOD UREA NITROGEN 14 mg/dL (7-21); CALCIUM 9.3 mg/dL (8.4-10.5); GFR NON-AFRICAN AMERICAN > 60
[2018-07-07 07:54] LABS: MEAN CELL VOLUME 91.9 fl (80.0-105.0); MEAN CORPUSCULAR HGB CONC 30.5 g/dl (31.0-37.0); MEAN PLATELET VOLUME 10.8 fl (7.0-11.0); RBC 3.57 10^6/uL (3.5-6.1); RED CELL DISTRIBUTION WIDTH 14.4 % (11.5-14.5); WHITE BLOOD COUNT 5.1 10^3/uL (4.5-11.0)
[2018-07-07] MEDS: Insulin Reg-LOW-Coverage SC SCH ×3 (08:02→17:04)
[2018-07-07] MEDS: Metoprolol Succinate 50 mg XL Tab PO SCH (09:19)
[2018-07-07] MEDS: Nystatin 100,000 Units/gm Topical Pow(15 gm) TOP SCH ×3 (09:50→17:05)
[2018-07-07] MEDS: Vancomycin 750mg 750 MG/250 ML BAG IVPB SCH ×2 (09:50→21:40)
[2018-07-07] MEDS: Mupirocin 2% Ointment 15 GM TUBE TOP SCH ×2 (09:51→17:05)
--- NOTE | 2018-07-07 12:09 | CP.PCM.CON ---
History of Present Illness - History of Present Illness History of Present Illness: Infectious Disease Consultation: July 07, 2018 62 yo female with PMHx of CABG, CAD, cardiac stents, CHF, HTN, DM, HLD, COPD/asthma, and cellulitis presenting with fevers up to 101 F and lesion on the left leg on the posterior aspect that is erythematous, induration, and drainage. Patient states that the wound and erythema present for several months. Fevers started in the past day. Both lower legs with extensive signs of peripheral vascular disease, chronic venous stasis, PMHx: CABG, CAD, cardiac stents, CHF, HTN, DM, HLD, COPD/asthma, and cellulitis PSHx: CABG x 4 vessels 2012 Allergies: NKDA Social Hx: No tobacco, EtOH, or illicit drug use Active Medications Acetaminophen (Tylenol 325mg Tab) 650 mg PO Q4H PRN PRN Reason: pain fever Albuterol/Ipratropium (Duoneb 3 Mg/0.5 Mg (3 Ml) Ud) 3 ml IH [id number] [facility] Last Admin: 07/07/18 13:15 Dose: 3 ml Aspirin (Ecotrin) 81 mg PO DAILY [facility] Last Admin: 07/07/18 09:19 Dose: 81 mg Atorvastatin Calcium (Lipitor) 10 mg PO DIN JAMAR Clopidogrel Bisulfate (Plavix) 75 mg PO DAILY [facility] Last Admin: 07/07/18 09:19 Dose: 75 mg Dicyclomine HCl (Bentyl) 20 mg PO TID PRN PRN Reason: Pain, Mild (1-3) Furosemide (Lasix) 40 mg IVP Q12 [facility] Last Admin: 07/07/18 09:20 Dose: 40 mg Vancomycin HCl (Vancomycin 750 Mg In Ns) 750 mg in 250 mls @ 167 mls/hr IVPB Q12H [facility]; Protocol Insulin Human Regular (Humulin R Low) 0 units SC ACHS [facility]; Protocol Last Admin: 07/07/18 11:35 Dose: Not Given Loratadine (Claritin) 10 mg PO DAILY [facility] Last Admin: 07/07/18 09:18 Dose: 10 mg Metformin HCl (Glucophage) 500 mg PO BID [facility] Last Admin: 07/07/18 09:19 Dose: 500 mg Metoprolol Succinate (Toprol Xl) 50 mg PO DAILY [facility] Last Admin: 07/07/18 09:19 Dose: 50 mg Montelukast Sodium (Singulair) 10 mg PO HS [facility] Mupirocin (Bactroban Ointment) 0 gm TOP BID [facility] Last Admin: 07/07/18 09:51 Dose: 1 applic Nystatin (Nystop Topical Powder) 0 gm TOP TID [facility] Last Admin: 07/07/18 09:50 Dose: 1 applic Family Hx: None given ROS: No fevers, chills, nausea, vomiting, diarrhea, headaches, dizziness, chest pain, abdominal pain, melena, hematuria, hematemesis, hematochezia, depression, anxiety. Past Patient History - Infectious Disease Hx of Infectious Diseases: None - Tetanus Immunizations Tetanus Immunization: Unknown - Past Medical History & Family History Past Medical History?: Yes - Past Social History Smoking Status: Former Smoker - CARDIAC Hx Cardiac Disorders: Yes Hx Angina: Yes Hx Congestive Heart Failure: Yes Hx Hypertension: Yes Hx Pacemaker: No Hx Peripheral Edema: Yes Hx Peripheral Vascular Disease: Yes Other/Comment: CABG - PULMONARY Hx Asthma: Yes Hx Chronic Obstructive Pulmonary Disease (COPD): Yes Hx Pneumonia: Yes - NEUROLOGICAL Hx Neurological Disorder: No - HEENT Hx HEENT Problems: No Other/Comment: Hx tonsillectomy - RENAL Hx Chronic Kidney Disease: No - ENDOCRINE/METABOLIC Hx Endocrine Disorders: Yes Hx Diabetes Mellitus Type 2: Yes Hx Hypothyroidism: Yes - HEMATOLOGICAL/ONCOLOGICAL Hx Anemia: No - INTEGUMENTARY Hx Dermatological Problems: Yes (stasis dermatitis) Other/Comment: Hx Chronic (venous stasis) leg ulcers. chronic lower extremity cellulitis - MUSCULOSKELETAL/RHEUMATOLOGICAL Hx Arthritis: Yes Hx Falls: No Hx Gout: Yes - GASTROINTESTINAL Hx Gastrointestinal Disorders: Yes Other/Comment: Ventral hernia repair - GENITOURINARY/GYNECOLOGICAL Hx Genitourinary Disorders: No - PSYCHIATRIC Hx Psychophysiologic Disorder: No Hx Substance Use: No - SURGICAL HISTORY Hx Surgeries: Yes Hx Mastectomy: No Other/Comment: herniorrhaphy umbilical hernia. CABG - ANESTHESIA Hx Anesthesia: Yes Hx Anesthesia Reactions: No Hx Malignant Hyperthermia: No Meds Allergies/Adverse Reactions: Allergies Allergy/AdvReac Type Severity Reaction Status Date / Time No Known Allergies Allergy Verified 06/05/18 17:59 - Medications Medications: Current Medications Acetaminophen (Tylenol 325mg Tab) 650 mg PO Q4H PRN PRN Reason: pain fever Albuterol/Ipratropium (Duoneb 3 Mg/0.5 Mg (3 Ml) Ud) 3 ml IH [id number] [facility] Last Admin: 07/07/18 07:22 Dose: 3 ml Aspirin (Ecotrin) 81 mg PO DAILY [facility] Last Admin: 07/07/18 09:19 Dose: 81 mg Atorvastatin Calcium (Lipitor) 10 mg PO DIN [facility] Clopidogrel Bisulfate (Plavix) 75 mg PO DAILY [facility] Last Admin: 07/07/18 09:19 Dose: 75 mg Dicyclomine HCl (Bentyl) 20 mg PO TID PRN PRN Reason: Pain, Mild (1-3) Furosemide (Lasix) 40 mg IVP Q12 [facility] Last Admin: 07/07/18 09:20 Dose: 40 mg Piperacillin Sod/Tazobactam Sod (Zosyn 3.375 In Ns 100ml) 100 mls @ 25 mls/hr IVPB Q6 [facility] Stop: 07/07/18 12:01 Last Admin: 07/07/18 06:17 Dose: 25 mls/hr Vancomycin HCl (Vancomycin 750 Mg In Ns) 750 mg in 250 mls @ 167 mls/hr IVPB Q12H [facility]; Protocol Insulin Human Regular (Humulin R Low) 0 units SC [facility]; Protocol Last Admin: 07/07/18 11:35 Dose: Not Given Loratadine (Claritin) 10 mg PO DAILY [facility] Last Admin: 07/07/18 09:18 Dose: 10 mg Metformin HCl (Glucophage) 500 mg PO BID [facility] Last Admin: 07/07/18 09:19 Dose: 500 mg Metoprolol Succinate (Toprol Xl) 50 mg PO DAILY [facility] Last Admin: 07/07/18 09:19 Dose: 50 mg Montelukast Sodium (Singulair) 10 mg PO [facility] Mupirocin (Bactroban Ointment) 0 gm TOP BID [facility] Last Admin: 07/07/18 09:51 Dose: 1 applic Nystatin (Nystop Topical Powder) 0 gm TOP TID [facility] Last Admin: 07/07/18 09:50 Dose: 1 applic Physical Exam - Constitutional Appears: Non-toxic, No Acute Distress, Chronically Ill - Head Exam Head Exam: ATRAUMATIC, NORMOCEPHALIC - Eye Exam Eye Exam: EOMI, PERRL Pupil Exam: NORMAL ACCOMODATION, PERRL - ENT Exam ENT Exam: Mucous Membranes Moist, Normal External Ear Exam, TM's Normal Bila terally - Neck Exam Neck exam: Positive for: Full Rom, Normal Inspection - Respiratory Exam Respiratory Exam: Clear to Auscultation Bilateral, NORMAL BREATHING PATTERN. absent: Rales, Rhonchi, Wheezes - Cardiovascular Exam Cardiovascular Exam: REGULAR RHYTHM, RRR, +S1, +S2 - GI/Abdominal Exam GI & Abdominal Exam: Normal Bowel Sounds, Soft. absent: Distended, Tenderness - Extremities Exam Additional comments: Bilateral leg erythema and induration. Left upper calf with Stage II-III ulceration with mild clear serosaguinous drainage. No odor at time of exam. - Neurological Exam Neurological exam: Alert, CN II-XII Intact, Oriented x3 - Psychiatric Exam Psychiatric exam: Normal Affect, Normal Mood - Skin Skin Exam: Intact, Normal Color Results - Vital Signs Recent Vital Signs: Last Vital Signs Temp 97.3 F L 07/07/18 06:00 Pulse 84 07/07/18 06:00 Resp 20 07/07/18 06:00 BP 110/59 L 07/07/18 09:20 Pulse Ox 99 07/07/18 06:00 - Labs Result Diagrams: 07/07/18 07:30 07/07/18 06:50 Labs: Laboratory Results - last 24 hr 07/06/18 07/06/18 07/06/18 15:50 15:50 15:50 WBC 5.2 RBC 3.70 Hgb 10.4 L Hct 34.1 L MCV 92.2 D MCH 28.1 MCHC 30.5 L RDW 14.7 H Plt Count 243 MPV 10.9 Neut % (Auto) 72.0 H Lymph % (Auto) 20.5 L Hudson % (Auto) 4.2 Eos % (Auto) 3.1 Baso % (Auto) 0.2 Lymph # (Auto) 1.1 L Hudson # (Auto) 0.2 Eos # (Auto) 0.2 Baso # (Auto) 0.01 Absolute Neuts (auto) 3.75 Sodium 140 Potassium 5.2 H Chloride 105 Carbon Dioxide 27 Anion Gap 13 BUN 18 Creatinine 1.0 Est GFR ( Amer) > 60 Est GFR (Non-Af Amer) 56 POC Glucose (mg/dL) Random Glucose 266 H Calcium 9.4 Iron TIBC % Saturation Total Bilirubin 0.4 AST 20 ALT 18 Alkaline Phosphatase 104 NT-Pro-B Natriuret Pep 2020 H Total Protein 6.7 Albumin 3.8 Globulin 2.9 Albumin/Globulin Ratio 1.3 Triglycerides 164 H Cholesterol 167 LDL Cholesterol Direct 115 HDL Cholesterol 32 TSH 3rd Generation 07/06/18 07/06/18 07/07/18 15:50 21:21 06:31 WBC RBC Hgb Hct MCV MCH MCHC RDW Plt Count MPV Neut % (Auto) Lymph % (Auto) Hudson % (Auto) Eos % (Auto) Baso % (Auto) Lymph # (Auto) Hudson # (Auto) Eos # (Auto) Baso # (Auto) Absolute Neuts (auto) Sodium Potassium Chloride Carbon Dioxide Anion Gap BUN Creatinine Est GFR ( Amer) Est GFR (Non-Af Amer) POC Glucose (mg/dL) 98 172 H Random Glucose Calcium Iron 37 L TIBC 276 % Saturation 13 L Total Bilirubin AST ALT Alkaline Phosphatase NT-Pro-B Natriuret Pep Total Protein Albumin Globulin Albumin/Globulin Ratio Triglycerides Cholesterol LDL Cholesterol Direct HDL Cholesterol TSH 3rd Generation 07/07/18 07/07/18 07/07/18 06:50 06:50 07:30 WBC 5.1 RBC 3.57 Hgb 10.0 L Hct 32.8 L MCV 91.9 MCH 28.0 MCHC 30.5 L RDW 14.4 Plt Count 227 MPV 10.8 Neut % (Auto) Lymph % (Auto) Hudson % (Auto) Eos % (Auto) Baso % (Auto) Lymph # (Auto) Hudson # (Auto) Eos # (Auto) Baso # (Auto) Absolute Neuts (auto) Sodium 140 Potassium 4.5 Chloride 105 Carbon Dioxide 28 Anion Gap 12 BUN 14 Creatinine 0.9 Est GFR ( Amer) > 60 Est GFR (Non-Af Amer) > 60 POC Glucose (mg/dL) Random Glucose 182 H Calcium 9.3 Iron TIBC % Saturation Total Bilirubin AST ALT Alkaline Phosphatase NT-Pro-B Natriuret Pep Total Protein Albumin Globulin Albumin/Globulin Ratio Triglycerides Cholesterol LDL Cholesterol Direct HDL Cholesterol TSH 3rd Generation 2.25 07/07/18 11:33 WBC RBC Hgb Hct MCV MCH MCHC RDW Plt Count MPV Neut % (Auto) Lymph % (Auto) Hudson % (Auto) Eos % (Auto) Baso % (Auto) Lymph # (Auto) Hudson # (Auto) Eos # (Auto) Baso # (Auto) Absolute Neuts (auto) Sodium Potassium Chloride Carbon Dioxide Anion Gap BUN Creatinine Est GFR ( Amer) Est GFR (Non-Af Amer) POC Glucose (mg/dL) 86 Random Glucose Calcium Iron TIBC % Saturation Total Bilirubin AST ALT Alkaline Phosphatase NT-Pro-B Natriuret Pep Total Protein Albumin Globulin Albumin/Globulin Ratio Triglycerides Cholesterol LDL Cholesterol Direct HDL Cholesterol TSH 3rd Generation Assessment & Plan - Assessment and Plan (Free Text) Assessment: 62 yo female with PMHx of CABG, CAD, cardiac stents, CHF, HTN, DM, HLD, and COPD/asthma with signs of PVD and chronic venous stasis of the legs bilaterally with ulceration of the Left upper posterior calf that may be secondary superinfected. Started on IV Zosyn and Vancomycin. Monitor renal function. Consider arterial doppler studies for the patient. Supportive care. Local wound care. Multiple chronic issues on this patient. Thank you for allowing me to participate in the care of the patient, we will follow with you.
[2018-07-07 13:24] LABS: FOLATE 7.7 ng/mL
--- NOTE | 2018-07-08 00:32 | PN ---
DATE: 07/07/2018 This case has been discussed with Dr. Robles. She is in agreement with the treatment plan. SUBJECTIVE: This is a 62-year-old male with cellulitis, past medical history of acute and chronic cellulitis, asthma, obesity, COPD, hypertension and CHF. I saw the patient today at the bedside. She is alert and oriented. Denying chest pain, shortness of breath, abdominal pain, hematuria, hematochezia, fevers, or chills. Reporting pain to the left lower extremity at the site of a leg wound and site of cellulitis. PHYSICAL EXAMINATION: VITAL SIGNS: Temperature 97.6, pulse 78, blood pressure 117/70, respiratory rate 20, and sating at 97% on room air. GENERAL APPEARANCE: The patient appeared in no acute distress. HEENT: Normocephalic and atraumatic. PERRLA. Mucous membranes moist. NECK: Supple. No thyromegaly. Normal inspection. RESPIRATORY: Clear to auscultation. No wheeze. No rhonchi. CARDIOVASCULAR: S1 and S2. No JVD. ABDOMEN: Soft and distended. No organomegaly. No guarding or tenderness. EXTREMITIES: The patient is moving both extremities. Left lower extremity with edema of +3, erythema, and warmth. There is a stage II to III wound located on the calf. No drainage was apparent. Right leg with edema, some erythema, cold to touch. NEUROLOGIC: The patient is alert and oriented x3. MEDICATIONS: The patient continues on DuoNeb, Ecotrin, Lipitor, Plavix, Bentyl, Lasix, before meals and bedtime Accu-Chek, Claritin, metformin, Lopressor, Singulair, Bactroban ointment, nystatin, Zosyn IV piggyback every 8 hours and vancomycin IV piggyback every 12 hours. LABORATORY DATA: Hematology from 07/07/2018; white blood cells 5.1, hemoglobin 10, hematocrit 32.8 and platelet count 227. Sodium 140, potassium 4.5, BUN of 14, estimated GFR over 60 and random glucose 182. TSH is 2.25. ASSESSMENT AND PLAN: This is a 62-year-old female with cellulitis to lower extremities, peripheral vascular disease, congestive heart failure, obesity, diabetes and chronic obstructive pulmonary disease. The patient continues on Lipitor, aspirin daily, Plavix, Lasix every 12 hours, metformin twice a day and Lopressor. Infectious Diseases is on the case. The patient is continuing on vancomycin every 12 hours and Zosyn every 8 hours. We will follow up. ALL ABOVE NOTED , AGREED WITH [employer] TREATMENT PLAN , EDUCATION DONE , WILL CONT. SAME TREATMENT , WILL F/U Leroy Olivera APN Ashley Robles MD [facility]
[2018-07-08] MEDS: Albuterol-Ipratrop 3 mg / 0.5 (3 ml) UD IH SCH ×4 (01:17→19:59)
[2018-07-08] MEDS: Insulin Reg-LOW-Coverage SC SCH ×5 (02:40→23:40)
[2018-07-08] MEDS: Piperacillin/Tazobact 3.375 gm 100 ML IVPB SCH ×3 (06:32→23:33)
[2018-07-08] MEDS: Metoprolol Succinate 50 mg XL Tab PO SCH (10:08)
[2018-07-08] MEDS: Mupirocin 2% Ointment 15 GM TUBE TOP SCH ×2 (10:09→17:13)
[2018-07-08] MEDS: Nystatin 100,000 Units/gm Topical Pow(15 gm) TOP SCH ×3 (10:09→17:13)
--- NOTE | 2018-07-08 10:36 | US ---
PROCEDURE: Lower extremity JOE exam HISTORY: Peripheral vascular disease with pain and ulceration. Previous smoker. Diabetes.. PHYSICIAN(S): Chava Dash MD. FINDINGS: The resting JOE's are inaccurate due to calcification: Right, 1.02 and left, 0.92 The brachial systolic pressures are symmetric. The the low thigh pressures are noncompressible. The low thigh PVR waveforms are relatively normal and symmetric The calf PVR waveforms augment normally. The calf PVR waveforms are normal and symmetric. The ankle and metatarsal waveforms are pulsatile and mildly blunted. This is suggestive of bilateral tibial disease. IMPRESSION: 1. Bilateral tibial disease.
[2018-07-08] MEDS: Vancomycin 750mg 750 MG/250 ML BAG IVPB SCH ×2 (10:50→21:41)
--- NOTE | 2018-07-08 16:49 | CP.PCM.PN ---
Subjective - Date & Time of Evaluation Date of Evaluation: 07/08/18 Time of Evaluation: 15:45 - Subjective Subjective: Infectious Disease Follow Up: July 08, 2018 62 yo female with PMHx of CABG, CAD, cardiac stents, CHF, HTN, DM, HLD, COPD/asthma, and cellulitis presenting with fevers up to 101 F and lesion on the left leg on the posterior aspect that is erythematous, induration, and drainage. Patient states that the wound and erythema present for several months. Fevers started in the past day. Both lower legs with extensive signs of peripheral vascular disease, chronic venous stasis. Afebrile in the hospital so far. Objective - Vital Signs/Intake and Output Vital Signs (last 24 hours): Temp Pulse Resp BP Pulse Ox 97.5 F L 70 20 129/76 96 07/08/18 14:00 07/08/18 14:00 07/08/18 14:00 07/08/18 14:00 07/08/18 14:00 Intake and Output: 07/08/18 07/08/18 06:59 18:59 Intake Total 240 Balance 240 - Medications Medications: Current Medications Acetaminophen (Tylenol 325mg Tab) 650 mg PO Q4H PRN PRN Reason: pain fever Albuterol/Ipratropium (Duoneb 3 Mg/0.5 Mg (3 Ml) Ud) 3 ml IH [id number] [facility] Last Admin: 07/08/18 13:05 Dose: Not Given Aspirin (Ecotrin) 81 mg PO DAILY [facility] Last Admin: 07/08/18 10:08 Dose: 81 mg Atorvastatin Calcium (Lipitor) 10 mg PO DIN [facility] Last Admin: 07/07/18 17:04 Dose: 10 mg Clopidogrel Bisulfate (Plavix) 75 mg PO DAILY [facility] Last Admin: 07/08/18 10:08 Dose: 75 mg Dicyclomine HCl (Bentyl) 20 mg PO TID PRN PRN Reason: Pain, Mild (1-3) Furosemide (Lasix) 40 mg IVP Q12 [facility] Last Admin: 07/08/18 10:07 Dose: 40 mg Vancomycin HCl (Vancomycin 750 Mg In Ns) 750 mg in 250 mls @ 167 mls/hr IVPB Q12H [facility]; Protocol Last Admin: 07/08/18 10:50 Dose: 167 mls/hr Piperacillin Sod/Tazobactam Sod (Zosyn 3.375 In Ns 100ml) 100 mls @ 25 mls/hr IVPB Q8 [facility]; Protocol Last Admin: 07/08/18 14:12 Dose: 25 mls/hr Insulin Human Regular (Humulin R Low) 0 units SC ACHS [facility]; Protocol Last Admin: 07/08/18 16:03 Dose: Not Given Loratadine (Claritin) 10 mg PO DAILY [facility] Last Admin: 07/08/18 10:08 Dose: 10 mg Metformin HCl (Glucophage) 500 mg PO BID [facility] Last Admin: 07/08/18 10:08 Dose: 500 mg Metoprolol Succinate (Toprol Xl) 50 mg PO DAILY [facility] Last Admin: 07/08/18 10:08 Dose: 50 mg Montelukast Sodium (Singulair) 10 mg PO HS [facility] Last Admin: 07/07/18 21:40 Dose: 10 mg Mupirocin (Bactroban Ointment) 0 gm TOP BID [facility] Last Admin: 07/08/18 10:09 Dose: 1 applic Nystatin (Nystop Topical Powder) 0 gm TOP TID [facility] Last Admin: 07/08/18 14:14 Dose: 1 applic - Labs Labs: 07/07/18 07:30 07/07/18 06:50 - Constitutional Appears: Non-toxic, No Acute Distress, Chronically Ill - Head Exam Head Exam: ATRAUMATIC, NORMOCEPHALIC - Eye Exam Eye Exam: EOMI, PERRL Pupil Exam: NORMAL ACCOMODATION, PERRL - ENT Exam ENT Exam: Mucous Membranes Moist, Normal External Ear Exam, TM's Normal Bilaterally - Neck Exam Neck Exam: Full ROM, Normal Inspection - Respiratory Exam Respiratory Exam: Clear to Ausculation Bilateral, NORMAL BREATHING PATTERN. absent: Rales, Rhonchi, Wheezes - Cardiovascular Exam Cardiovascular Exam: REGULAR RHYTHM, RRR, +S1, +S2 - GI/Abdominal Exam GI & Abdominal Exam: Soft, Normal Bowel Sounds. absent: Distended, Tenderness - Extremities Exam Additional comments: Bilateral leg erythema and induration. Left upper calf with Stage II-III ulceration with mild clear serosaguinous drainage. No odor at time of exam. - Neurological Exam Neurological Exam: Alert, Awake, CN II-XII Intact, Oriented x3 - Psychiatric Exam Psychiatric exam: Normal Affect, Normal Mood - Skin Skin Exam: Intact, Normal Color Assessment and Plan - Assessment and Plan (Free Text) Assessment: 62 yo female with PMHx of CABG, CAD, cardiac stents, CHF, HTN, DM, HLD, and COPD/asthma with signs of PVD and chronic venous stasis of the legs bilaterally with ulceration of the Left upper posterior calf that may be secondary superinfected. Started on IV Zosyn and Vancomycin. Monitor renal function. Consider arterial doppler studies for the patient. Supportive care. Local wound care. Arterial doppler showing bilateral tibial disease. Multiple chronic issues on this patient. Thank you for allowing me to participate in the care of the patient, we will follow with you.
--- NOTE | 2018-07-08 21:57 | HP ---
DATE OF EXAM: 07/07/2018 The patient was seen and examined at the bedside on 07/07/2018. CHIEF COMPLAINT: Swelling of the legs and ulcers on the leg. HISTORY OF PRESENT ILLNESS: Mrs. Kateryna Mcwilliams is a 62-year-old female with multiple medical problems, CABG, coronary artery disease, cardiac stent, congestive heart failure, hypertension, diabetes mellitus, hypercholesterolemia, COPD, asthma, and cellulitis, came actually in our office and we sent the patient to the emergency room for weeping ulcers. The patient has temperature of 101, from her wound having throbbing pain. We admitted the patient, called ID consult, and started antibiotics. PAST MEDICAL HISTORY: CABG, coronary artery disease, cardiac stent, congestive heart failure, hypertension, diabetes mellitus, hypercholesterolemia, COPD, asthma, and history of cellulitis of the legs. The patient has multiple admissions for swelling of the legs. The patient is homeless, very noncompliant, history of arthritis, coronary artery bypass graft, and tonsillectomy. FAMILY HISTORY: Father and mother noncontributory. HABITS: No smoking. No drugs or ethanol. ALLERGIES: THE PATIENT IS NOT ALLERGIC WITH ANY MEDICATIONS. HOME MEDICATIONS: Reviewed by me. REVIEW OF SYSTEMS: The patient is resting at the bedside. For further information, read progress notes dictated on 07/07/2018. Ashley Robles MD [facility]
--- NOTE | 2018-07-08 23:40 | PN ---
DATE: 07/08/2018 SUBJECTIVE: The patient is a 62-year-old female. The patient was seen and examined at the bedside on 07/08/2018, still having wounds on the legs. Today, no fever, no chills. No hematuria. No hematochezia. No headache or dizziness. No chest pain. No palpitations. PHYSICAL EXAMINATION: VITAL SIGNS: Temperature 97.5, pulse 70, respiratory rate 20, blood pressure 120/70, and pulse oximetry 98%. HEENT: Head; normocephalic and atraumatic. Eyes; PERRLA. Extraocular muscles are intact. Conjunctivae clear. Nose patent. Mucous membranes moist. NECK: Supple. No carotid bruit. No JVD. No thyromegaly. CHEST: Bilaterally symmetrical. HEART: S1 and S2 positive. LUNGS: Clear to auscultation. ABDOMEN: Soft. Bowel sounds present. No organomegaly. EXTREMITIES: Positive edema, redness, and wounds. MEDICATIONS: Tylenol, DuoNeb, Lipitor, Plavix, Lasix, insulin, loratadine, Singulair, nystatin. LABORATORY DATA: White blood cells 5.9, hemoglobin 10.6, hematocrit 36.8, and platelets 227. Sodium 140, potassium 4.5, BUN 14, creatinine 0.9, and glucose 182. ASSESSMENT AND PLAN: Ms. Kateryna Mcwilliams is a 62-year-old lady with anemia, hyperglycemia, has past medical history of coronary artery bypass grafting, coronary artery disease, cardiac stent, congestive heart failure, hypertension, diabetes mellitus, hypercholesterolemia, chronic obstructive pulmonary disease, asthma, has multiple admission for swelling of the leg, cellulitis of the leg, signs of peripheral vascular disease, chronic venous stasis of the legs bilaterally with ulceration of the left upper posterior calf that may be secondary to superinfection. Getting Zosyn and vancomycin. patient' need supportive care , had social issue , local wound care. Appreciated Dr. Grubbs's input. After the arterial Doppler was done, it shows bilateral tibial disease, multiple chronic issues on the patient. The patient is homeless, staying with the friend, gastrointestinal and deep venous thrombosis prophylaxis. Repeat labs. We will follow up. Ashley Robles MD MTDD
[2018-07-09] MEDS: Albuterol-Ipratrop 3 mg / 0.5 (3 ml) UD IH SCH ×4 (01:26→20:11)
[2018-07-09] MEDS: Piperacillin/Tazobact 3.375 gm 100 ML IVPB SCH ×3 (05:39→23:18)
[2018-07-09] MEDS: Insulin Reg-LOW-Coverage SC SCH ×3 (07:41→16:46)
[2018-07-09] MEDS: Nystatin 100,000 Units/gm Topical Pow(15 gm) TOP SCH ×3 (09:04→17:19)
[2018-07-09] MEDS: Mupirocin 2% Ointment 15 GM TUBE TOP SCH ×2 (09:04→17:19)
[2018-07-09] MEDS: Metoprolol Succinate 50 mg XL Tab PO SCH (09:05)
[2018-07-09] MEDS: Vancomycin 750mg 750 MG/250 ML BAG IVPB SCH ×2 (09:06→21:21)
--- NOTE | 2018-07-09 15:23 | PN ---
This case was discussed with she is inagreement with treatment plan. DATE: 07/09/2018 SUBJECTIVE: This is a 62-year-old female, presented to ER for cellulitis of the left lower extremity . I saw the patient today at bedside. She is alert and oriented. Ambulating in room with less edema to bilaterally lower extremities. The patient denying chest pain, shortness of breath, abdominal pain, hematuria, hematochezia, fevers, or chills. PHYSICAL EXAMINATION: GENERAL: The patient appears chronically ill, no acute distress. VITAL SIGNS: Temperature 97.5, pulse rate 72, blood pressure 119/70, respirations 20, and sating 96% on room air. HEENT: Normocephalic and atraumatic. PERRLA. Mucous membranes moist. RESPIRATORY: Clear to auscultation. No wheeze. No rhonchi. CARDIOVASCULAR: S1 and S2. No JVD. ABDOMEN: Soft and nondistended. No organomegaly. EXTREMITIES: The patient is moving all extremities. Ambulating at will, bilateral lower extremities with erythema; has stage II wound to left lower extremity, being treated with bacitracin. No edema present. No pain. Cellulitis to left lower extremity. NEUROLOGIC: The patient is alert and oriented x3. No cognitive deficit. MEDICATIONS: The patient continues on DuoNeb, Ecotrin, Lipitor, Plavix, Bentyl, Lasix 40 mg every 12 hours, Accu-Chek a.c. and h.s. for insulin coverage, Claritin, metformin 500 b.i.d., Lopressor 50 mg, Singulair 10 mg, Bactroban ointment, nystatin powder, Zosyn, IV piggyback every 8 hours, vancomycin 750 IV piggyback every 12 hours. LABORATORY DATA: Laboratories from 07/07/2018: White blood cells 5.1, hemoglobin 10, hematocrit 32.8 and platelet count 227. Sodium 140, potassium 4.5, BUN of 14, estimated GFR over 60, random glucose on 07/07/2018 was 182. Repeat blood cultures for left lower extremity, no growth after 24 hours. ASSESSMENT AND PLAN: This is a 62-year-old female came in with cellulitis to lower extremities and weeping edema. The patient has diabetes mellitus with obesity, chronic obstructive pulmonary disease, hypertension. She is on DuoNeb, Lipitor, Plavix, Lasix IV piggyback, metoprolol daily, Glucophage. ID is on the case. The patient is taking Zosyn every 8 hours, vancomycin every 12 hours. Pulmonology is on the case. The patient continues on bronchodilators. No current labs for 07/09/2018, labs for a.m. The patient is homeless, this was discussed with the patient. Risk of health status deteriorating due to being homeless and moving from place to place,patient agrees. At this point, She would like to be placed in long- term care or subacute rehab as this patient is homeless, waiting on her social security, put in for consult for case management and referral for discharge planning for long-term care, also for [facility] to evaluate the patient. Plan at this point is for the patient to continue with IV antibiotics for cellulitis and placement to half-way facility. We will follow up. ALL ABOVE NOTED , AGREED WITH [employer]ANNEL [employer] TREATMENT PLAN , EDUCATION DONE , D/D DONE WITH CHANNEL WORKER AND STAFF , WILL CONT. SAME TREATMENT , Leroy Olivera APN Ashley Robles MD LA[facility]IE
--- NOTE | 2018-07-09 15:27 | CP.PCM.PN ---
Subjective - Date & Time of Evaluation Date of Evaluation: 07/09/18 Time of Evaluation: 15:00 - Subjective Subjective: Infectious Disease Follow Up: July 09, 2018 62 yo female with PMHx of CABG, CAD, cardiac stents, CHF, HTN, DM, HLD, COPD/asthma, and cellulitis presenting with fevers up to 101 F and lesion on the left leg on the posterior aspect that is erythematous, induration, and drainage. Patient states that the wound and erythema present for several months. Fevers started in the past day. Both lower legs with extensive signs of peripheral vascular disease, chronic venous stasis. Afebrile in the hospital so far. No leukocytosis. Erythema of the leg is slightly improving. Clear serosanguinous drainage from l eft calf ulcer. Patient is tolerating Vancomycin and Zosyn. Wound cultures negative to date. Noted that patient is homeless. Objective - Vital Signs/Intake and Output Vital Signs (last 24 hours): Temp Pulse Resp BP Pulse Ox 97.5 F L 63 20 119/70 96 07/09/18 06:00 07/09/18 09:05 07/09/18 06:00 07/09/18 09:06 07/09/18 06:00 Intake and Output: 07/09/18 07/09/18 06:59 18:59 Intake Total 180 Balance 180 - Medications Medications: Current Medications Acetaminophen (Tylenol 325mg Tab) 650 mg PO Q4H PRN PRN Reason: pain fever Last Admin: 07/08/18 20:28 Dose: 650 mg Albuterol/Ipratropium (Duoneb 3 Mg/0.5 Mg (3 Ml) Ud) 3 ml IH [id number] [facility] Last Admin: 07/09/18 13:24 Dose: Not Given Aspirin (Ecotrin) 81 mg PO DAILY [facility] Last Admin: 07/09/18 09:04 Dose: 81 mg Atorvastatin Calcium (Lipitor) 10 mg PO DIN [facility] Last Admin: 07/08/18 17:13 Dose: 10 mg Clopidogrel Bisulfate (Plavix) 75 mg PO DAILY [facility] Last Admin: 07/09/18 09:06 Dose: 75 mg Dicyclomine HCl (Bentyl) 20 mg PO TID PRN PRN Reason: Pain, Mild (1-3) Furosemide (Lasix) 40 mg IVP Q12 [facility] Last Admin: 07/09/18 09:06 Dose: 40 mg Vancomycin HCl (Vancomycin 750 Mg In Ns) 750 mg in 250 mls @ 167 mls/hr IVPB Q12H [facility]; Protocol Last Admin: 07/09/18 09:06 Dose: 167 mls/hr Piperacillin Sod/Tazobactam Sod (Zosyn 3.375 In Ns 100ml) 100 mls @ 25 mls/hr IVPB Q8 [facility]; Protocol Last Admin: 07/09/18 05:39 Dose: 25 mls/hr Insulin Human Regular (Humulin R Low) 0 units SC ACHS [facility]; Protocol Last Admin: 07/09/18 11:42 Dose: 1 units Loratadine (Claritin) 10 mg PO DAILY [facility] Last Admin: 07/09/18 09:05 Dose: 10 mg Metformin HCl (Glucophage) 500 mg PO BID [facility] Last Admin: 07/09/18 09:05 Dose: 500 mg Metoprolol Succinate (Toprol Xl) 50 mg PO DAILY [facility] Last Admin: 07/09/18 09:05 Dose: 50 mg Montelukast Sodium (Singulair) 10 mg PO HS [facility] Last Admin: 07/08/18 21:41 Dose: 10 mg Mupirocin (Bactroban Ointment) 0 gm TOP BID [facility] Last Admin: 07/09/18 09:04 Dose: 1 applic Nystatin (Nystop Topical Powder) 0 gm TOP TID [facility] Last Admin: 07/09/18 09:04 Dose: 1 applic - Labs Labs: 07/07/18 07:30 07/07/18 06:50 - Constitutional Appears: Non-toxic, No Acute Distress - Head Exam Head Exam: ATRAUMATIC, NORMOCEPHALIC - Eye Exam Eye Exam: EOMI, PERRL Pupil Exam: NORMAL ACCOMODATION, PERRL - ENT Exam ENT Exam: Mucous Membranes Moist, Normal External Ear Exam, TM's Normal Bilaterally - Neck Exam Neck Exam: Full ROM, Normal Inspection - Respiratory Exam Respiratory Exam: Clear to Ausculation Bilateral, NORMAL BREATHING PATTERN. absent: Rales, Rhonchi, Wheezes - Cardiovascular Exam Cardiovascular Exam: REGULAR RHYTHM, RRR, +S1, +S2 - GI/Abdominal Exam GI & Abdominal Exam: Soft, Normal Bowel Sounds. absent: Distended, Tenderness - Extremities Exam Additional comments: Bilateral leg erythema and induration that has slightly improved. Left upper calf with Stage II-III ulceration with mild clear serosaguinous drainage. No odor at time of exam. - Neurological Exam Neurological Exam: Alert, Awake, CN II-XII Intact, Oriented x3 - Psychiatric Exam Psychiatric exam: Normal Affect, Normal Mood - Skin Skin Exam: Intact, Normal Color Assessment and Plan - Assessment and Plan (Free Text) Assessment: 62 yo female with PMHx of CABG, CAD, cardiac stents, CHF, HTN, DM, HLD, and COPD/asthma with signs of PVD and chronic venous stasis of the legs bilaterally with ulceration of the Left upper posterior calf that may be secondary superinfected. Started on IV Zosyn and Vancomycin. Monitor renal function. Consider arterial doppler studies for the patient. Supportive care. Local wound care. Arterial doppler showing bilateral tibial disease. Multiple chronic issues on this patient. Induration and erythema of the legs have slightly improved. Could try up to 2 weeks of treatment with IV antibitoics with possible placement at [facility] given homeless situation. The patient will still have some level of erythema and induration secondary to chronic condition of the bilateral tibial disease. Thank you for allowing me to participate in the care of the patient, we will follow with you.
[2018-07-10] MEDS: Albuterol-Ipratrop 3 mg / 0.5 (3 ml) UD IH SCH ×4 (03:20→19:38)
[2018-07-10] MEDS: Insulin Reg-LOW-Coverage SC SCH ×5 (04:20→21:46)
[2018-07-10] MEDS: Piperacillin/Tazobact 3.375 gm 100 ML IVPB SCH ×2 (05:35→14:01)
[2018-07-10] MEDS: Metoprolol Succinate 50 mg XL Tab PO SCH (09:24)
[2018-07-10] MEDS: Mupirocin 2% Ointment 15 GM TUBE TOP SCH ×2 (09:25→17:47)
[2018-07-10] MEDS: Nystatin 100,000 Units/gm Topical Pow(15 gm) TOP SCH ×3 (09:25→17:48)
[2018-07-10] MEDS: Vancomycin 750mg 750 MG/250 ML BAG IVPB SCH (10:35)
[2018-07-10] MEDS: Lactobacillus Acidophilus 500 MU Cap PO SCH ×2 (11:29→19:21)
--- NOTE | 2018-07-10 16:55 | CP.PCM.PN ---
Subjective - Date & Time of Evaluation Date of Evaluation: 07/10/18 Time of Evaluation: 16:00 - Subjective Subjective: Infectious Disease Follow Up: July 10, 2018 62 yo female with PMHx of CABG, CAD, cardiac stents, CHF, HTN, DM, HLD, COPD/asthma, and cellulitis presenting with fevers up to 101 F and lesion on the left leg on the posterior aspect that is erythematous, induration, and drainage. Patient states that the wound and erythema present for several months. Fevers started in the past day. Both lower legs with extensive signs of peripheral vascular disease, chronic venous stasis. Afebrile in the hospital so far. No leukocytosis. Erythema of the leg is slowly improving. Clear serosanguinous drainage from lef t calf ulcer. Patient is tolerating Vancomycin and Zosyn. Wound cultures negative to date. Noted that patient is homeless. The majority of the leg changes more likely secondary to the patient's pe ripheral vascular disease and chronic venous stasis. Objective - Vital Signs/Intake and Output Vital Signs (last 24 hours): Temp Pulse Resp BP Pulse Ox 97.5 F L 76 18 106/70 95 07/10/18 14:00 07/10/18 09:24 07/10/18 14:00 07/10/18 14:00 07/10/18 14:00 Intake and Output: 07/10/18 07/10/18 06:59 18:59 Intake Total 240 Balance 240 - Medications Medications: Current Medications Acetaminophen (Tylenol 325mg Tab) 650 mg PO Q4H PRN PRN Reason: pain fever Last Admin: 07/08/18 20:28 Dose: 650 mg Albuterol/Ipratropium (Duoneb 3 Mg/0.5 Mg (3 Ml) Ud) 3 ml IH [id number] [facility] Last Admin: 07/10/18 13:31 Dose: Not Given Aspirin (Ecotrin) 81 mg PO DAILY [facility] Last Admin: 07/10/18 09:24 Dose: 81 mg Atorvastatin Calcium (Lipitor) 10 mg PO DIN [facility] Last Admin: 07/09/18 17:18 Dose: 10 mg Clopidogrel Bisulfate (Plavix) 75 mg PO DAILY [facility] Last Admin: 07/10/18 09:24 Dose: 75 mg Dicyclomine HCl (Bentyl) 20 mg PO TID PRN PRN Reason: Pain, Mild (1-3) Furosemide (Lasix) 40 mg IVP Q12 [facility] Last Admin: 07/10/18 09:24 Dose: 40 mg Vancomycin HCl (Vancomycin 750 Mg In Ns) 750 mg in 250 mls @ 167 mls/hr IVPB Q12H [facility]; Protocol Last Admin: 07/10/18 10:35 Dose: 167 mls/hr Insulin Human Regular (Humulin R Low) 0 units SC ACHS [facility]; Protocol Last Admin: 07/10/18 16:26 Dose: Not Given Lactobacillus Acidophilus (Bacid Acidophilus) 1 cap PO BID [facility] Last Admin: 07/10/18 11:29 Dose: 1 cap Loratadine (Claritin) 10 mg PO DAILY [facility] Last Admin: 07/10/18 09:24 Dose: 10 mg Metformin HCl (Glucophage) 500 mg PO BID [facility] Last Admin: 07/10/18 09:24 Dose: 500 mg Metoprolol Succinate (Toprol Xl) 50 mg PO DAILY [facility] Last Admin: 07/10/18 09:24 Dose: 50 mg Montelukast Sodium (Singulair) 10 mg PO HS [facility] Last Admin: 07/09/18 21:23 Dose: 10 mg Mupirocin (Bactroban Ointment) 0 gm TOP BID [facility] Last Admin: 07/10/18 09:25 Dose: 1 applic Nystatin (Nystop Topical Powder) 0 gm TOP TID [facility] Last Admin: 07/10/18 14:01 Dose: Not Given - Labs Labs: 07/07/18 07:30 07/07/18 06:50 - Constitutional Appears: Non-toxic, No Acute Distress, Chronically Ill - Head Exam Head Exam: ATRAUMATIC, NORMOCEPHALIC - Eye Exam Eye Exam: EOMI, PERRL Pupil Exam: NORMAL ACCOMODATION, PERRL - ENT Exam ENT Exam: Mucous Membranes Moist, Normal External Ear Exam, TM's Normal Bilaterally - Neck Exam Neck Exam: Full ROM, Normal Inspection - Respiratory Exam Respiratory Exam: Clear to Ausculation Bilateral, NORMAL BREATHING PATTERN. absent: Rales, Rhonchi, Wheezes - Cardiovascular Exam Cardiovascular Exam: REGULAR RHYTHM, RRR, +S1, +S2 - GI/Abdominal Exam GI & Abdominal Exam: Soft, Normal Bowel Sounds. absent: Distended, Tenderness - Extremities Exam Additional comments: Bilateral leg erythema and induration that has slightly improved. Left upper calf with Stage II-III ulceration with mild clear serosaguinous drainage. No odor at time of exam. - Neurological Exam Neurological Exam: Alert, Awake, CN II-XII Intact, Oriented x3 - Psychiatric Exam Psychiatric exam: Normal Affect, Normal Mood - Skin Skin Exam: Intact, Normal Color Assessment and Plan - Assessment and Plan (Free Text) Assessment: 62 yo female with PMHx of CABG, CAD, cardiac stents, CHF, HTN, DM, HLD, and COPD/asthma with signs of PVD and chronic venous stasis of the legs bilaterally with ulceration of the Left upper posterior calf that may be secondary superinfected. Started on IV Zosyn and Vancomycin. Monitor renal function. Consider arterial doppler studies for the patient. Supportive care. Local wound care. Arterial doppler showing bilateral tibial disease. Multiple chronic issues on this patient. Induration and erythema of the legs have slightly improved. Would give up to 2 weeks of treatment with IV antibitoics with possible placement at [facility] given homeless situation. The patient will still have some level of erythema and induration secondary to chronic condition of the bilateral tibial disease. Vancomycin level high. Holding next two doses. Recheck level in AM with CBC and CMP. Thank you for allowing me to participate in the care of the patient, we will follow with you.
[2018-07-11] MEDS: Albuterol-Ipratrop 3 mg / 0.5 (3 ml) UD IH SCH ×4 (01:14→19:52)
[2018-07-11 07:41] LABS: HEMOGLOBIN 11.6 g/dL (12.0-16.0); MEAN CELL VOLUME 90.2 fl (80.0-105.0); MEAN CORPUSCULAR HEMOGLOBIN 27.8 pg (25.0-35.0); MEAN CORPUSCULAR HGB CONC 30.8 g/dl (31.0-37.0); MEAN PLATELET VOLUME 11.2 fl (7.0-11.0); RBC 4.18 10^6/uL (3.5-6.1); RED CELL DISTRIBUTION WIDTH 14.2 % (11.5-14.5); WHITE BLOOD COUNT 5.2 10^3/uL (4.5-11.0)
[2018-07-11] MEDS: Insulin Reg-LOW-Coverage SC SCH ×4 (08:02→22:26)
[2018-07-11 08:06] LABS: ALB/GLOB RATIO 1.3 (1.1-1.8); ALBUMIN 3.9 g/dL (3.0-4.8); CALCIUM 9.3 mg/dL (8.4-10.5)
[2018-07-11] MEDS: Metoprolol Succinate 50 mg XL Tab PO SCH (09:24)
[2018-07-11] MEDS: Lactobacillus Acidophilus 500 MU Cap PO SCH ×2 (09:25→17:09)
[2018-07-11] MEDS: Mupirocin 2% Ointment 15 GM TUBE TOP SCH ×2 (09:25→17:09)
[2018-07-11] MEDS: Nystatin 100,000 Units/gm Topical Pow(15 gm) TOP SCH ×3 (09:26→17:10)
--- NOTE | 2018-07-11 14:33 | CP.PCM.PN ---
Subjective - Date & Time of Evaluation Date of Evaluation: 07/11/18 Time of Evaluation: 14:00 - Subjective Subjective: Infectious Disease Follow Up: July 11, 2018 62 yo female with PMHx of CABG, CAD, cardiac stents, CHF, HTN, DM, HLD, COPD/asthma, and cellulitis presenting with fevers up to 101 F and lesion on the left leg on the posterior aspect that is erythematous, induration, and drainage. Patient states that the wound and erythema present for several months. Fevers started in the past day. Both lower legs with extensive signs of peripheral vascular disease, chronic venous stasis. Afebrile in the hospital so far. No leukocytosis. Erythema of the leg is slowly improving. Clear serosanguinous drainage from lef t calf ulcer. Patient is tolerating Vancomycin and Zosyn. Wound cultures negative to date. Noted that patient is homeless. The majority of the leg changes more likely secondary to the patient's pe ripheral vascular disease and chronic venous stasis. Vancomycin levels high... continuing to hold Vancomycin dosing. Recheck vancomycin levels in AM. Creatinine increased to 1.5. Objective - Vital Signs/Intake and Output Vital Signs (last 24 hours): Temp Pulse Resp BP Pulse Ox 97.6 F 65 18 125/60 95 07/11/18 06:00 07/11/18 09:24 07/11/18 06:00 07/11/18 09:24 07/11/18 06:00 Intake and Output: 07/11/18 07/11/18 06:59 18:59 Intake Total 960 Balance 960 - Medications Medications: Current Medications Acetaminophen (Tylenol 325mg Tab) 650 mg PO Q4H PRN PRN Reason: pain fever Last Admin: 07/08/18 20:28 Dose: 650 mg Albuterol/Ipratropium (Duoneb 3 Mg/0.5 Mg (3 Ml) Ud) 3 ml IH [id number] [facility] Last Admin: 07/11/18 13:58 Dose: Not Given Aspirin (Ecotrin) 81 mg PO DAILY [facility] Last Admin: 07/11/18 09:25 Dose: 81 mg Atorvastatin Calcium (Lipitor) 10 mg PO DIN [facility] Last Admin: 07/10/18 17:46 Dose: 10 mg Clopidogrel Bisulfate (Plavix) 75 mg PO DAILY [facility] Last Admin: 07/11/18 09:24 Dose: 75 mg Dicyclomine HCl (Bentyl) 20 mg PO TID PRN PRN Reason: Pain, Mild (1-3) Furosemide (Lasix) 40 mg IVP Q12 [facility] Last Admin: 07/11/18 09:24 Dose: 40 mg Vancomycin HCl (Vancomycin 750 Mg In Ns) 750 mg in 250 mls @ 167 mls/hr IVPB Q12H [facility]; Protocol Last Admin: 07/10/18 10:35 Dose: 167 mls/hr Insulin Human Regular (Humulin R Low) 0 units SC ACHS [facility]; Protocol Last Admin: 07/11/18 11:30 Dose: Not Given Lactobacillus Acidophilus (Bacid Acidophilus) 1 cap PO BID [facility] Last Admin: 07/11/18 09:25 Dose: 1 cap Loratadine (Claritin) 10 mg PO DAILY [facility] Last Admin: 07/11/18 09:25 Dose: 10 mg Metformin HCl (Glucophage) 500 mg PO BID [facility] Last Admin: 07/11/18 09:25 Dose: 500 mg Metoprolol Succinate (Toprol Xl) 50 mg PO DAILY [facility] Last Admin: 07/11/18 09:24 Dose: 50 mg Montelukast Sodium (Singulair) 10 mg PO HS [facility] Last Admin: 07/10/18 21:47 Dose: 10 mg Mupirocin (Bactroban Ointment) 0 gm TOP BID [facility] Last Admin: 07/11/18 09:25 Dose: 1 applic Nystatin (Nystop Topical Powder) 0 gm TOP TID [facility] Last Admin: 07/11/18 09:26 Dose: 1 applic - Labs Labs: 07/11/18 07:00 07/11/18 07:00 - Constitutional Appears: Non-toxic, No Acute Distress, Chronically Ill - Head Exam Head Exam: ATRAUMATIC, NORMOCEPHALIC - Eye Exam Eye Exam: EOMI, PERRL Pupil Exam: NORMAL ACCOMODATION, PERRL - ENT Exam ENT Exam: Mucous Membranes Moist, Normal External Ear Exam, TM's Normal Bilaterally - Neck Exam Neck Exam: Full ROM, Normal Inspection - Respiratory Exam Respiratory Exam: Clear to Ausculation Bilateral, NORMAL BREATHING PATTERN. absent: Rales, Rhonchi, Wheezes - Cardiovascular Exam Cardiovascular Exam: REGULAR RHYTHM, RRR, +S1, +S2 - GI/Abdominal Exam GI & Abdominal Exam: Soft, Normal Bowel Sounds. absent: Distended, Tenderness - Extremities Exam Additional comments: Bilateral leg erythema and induration that has improved. Left upper calf with Stage II-III ulceration with mild clear serosaguinous drainage. No odor at time of exam. - Neurological Exam Neurological Exam: Alert, Awake, CN II-XII Intact, Oriented x3 - Psychiatric Exam Psychiatric exam: Normal Affect, Normal Mood - Skin Skin Exam: Intact, Normal Color Assessment and Plan - Assessment and Plan (Free Text) Assessment: 62 yo female with PMHx of CABG, CAD, cardiac stents, CHF, HTN, DM, HLD, and COPD/asthma with signs of PVD and chronic venous stasis of the legs bilaterally with ulceration of the Left upper posterior calf that may be secondary superinfected. Started on IV Zosyn and Vancomycin. Monitor renal function. Consider arterial doppler studies for the patient. Supportive care. Local wound care. Arterial doppler showing bilateral tibial disease. Multiple chronic issues on this patient. Induration and erythema of the legs have slightly improved. Would give up to 2 weeks of treatment with IV antibiotics with possible placement at [facility] given homeless situation. The patient will still have some level of erythema and induration secondary to chronic condition of the bilateral tibial disease. Vancomycin level high. Holding doses. Vancomycin Random 27.2 today. Recheck level in AM with CMP. Noted Creatinine of 1.5 today. Thank you for allowing me to participate in the care of the patient, we will follow with you.
[2018-07-12] MEDS: Albuterol-Ipratrop 3 mg / 0.5 (3 ml) UD IH SCH ×4 (01:14→19:28)
[2018-07-12 08:12] LABS: ALB/GLOB RATIO 1.4 (1.1-1.8); CALCIUM 9.7 mg/dL (8.4-10.5)
[2018-07-12] MEDS: Insulin Reg-LOW-Coverage SC SCH ×3 (08:16→17:19)
--- NOTE | 2018-07-12 08:34 | PN ---
DATE: 07/11/2018 SUBJECTIVE: The patient is a 62-year-old female. The patient was seen and examined at the bedside on 07/11/2018. Looking comfortable. No fever. No chills. No hematuria. No hematochezia. No headache or dizziness. No chest pain. No palpitation. Still has ulcers on the legs, having dressing and local treatment. PHYSICAL EXAMINATION: VITAL SIGNS: Temperature 97.6, pulse 55, respiratory rate 18, blood pressure is 125/60, and pulse oximetry 95%. HEENT: Head is normocephalic and atraumatic. Eyes; PERRLA. Extraocular muscles intact. Conjunctivae clear. Nose patent. Mucous membranes moist. NECK: Supple. No carotid bruits. No JVD or thyromegaly. CHEST: Bilaterally symmetrical. HEART: S1 and S2 positive. LUNGS: Clear to auscultation. ABDOMEN: Soft. Bowel sounds present. No organomegaly. EXTREMITIES: No edema. No cyanosis. NEUROLOGIC: The patient is awake and alert and follows simple commands. MEDICATIONS: Tylenol, DuoNeb, Ecotrin, Lipitor, Plavix, Bentyl, Lasix, insulin, Claritin, Glucophage, and Toprol. LABORATORY DATA: White blood cell 6.2, hemoglobin 11.4, hematocrit 37.7, and platelets 239. Sodium 140, potassium 3.2, BUN 23, and creatinine 1.5. ASSESSMENT AND PLAN: Ms. Kateryna Mcwilliams is a 62-year-old female with anemia, renal insufficiency with past medical history of coronary artery bypass graft, coronary artery disease, cardiac stent, congestive heart failure, hypertension, diabetes mellitus, hypercholesterolemia, chronic obstructive pulmonary disease/asthma, has peripheral vascular disease, venous stasis of the legs bilaterally with ulceration of the left upper posterior calf that may be secondary to superimposed infection. The patient is getting Zosyn and vancomycin, local wound care. Arterial Doppler shows bilateral tibial disease. According to Infectious Disease, the patient should to go Subacute Rehab, need at least two weeks of IV antibiotics. Gastrointestinal and deep venous thrombosis prophylaxes. Repeat labs. We will follow up. Ashley Robles MD [facility] # [id number] MTDJacquelyn
--- NOTE | 2018-07-12 09:12 | PN ---
DATE: 07/10/2018 SUBJECTIVE: The patient was seen and examined at the bedside on 07/10/2018. The patient is looking comfortable. No fever. No chills. No hematuria. No hematochezia. No headache. No dizziness. No chest pain. No palpitations. Still has problem with her legs, especially left. Getting IV antibiotics as per Infectious Disease. As the patient has some social issues also, she is like homeless, sometimes staying with her sister, sometimes with the friends, sometimes sleeping on the benches. Thursday, we will talk to a social media marketing specialist about that. PHYSICAL EXAMINATION: VITAL SIGNS: Temperature 97.5, pulse 76, respiratory rate 18, blood pressure 106/70, pulse oximetry 95%. HEENT: Head is normocephalic and atraumatic. Eyes; PERRLA. Extraocular muscles intact. Conjunctivae clear. Nose patent. Mucous membranes moist. NECK: Supple. No carotid bruit. No JVD or thyromegaly. CHEST: Bilaterally symmetrical. HEART: S1, S2 positive. LUNGS: Clear to auscultation. ABDOMEN: Soft. Bowel sounds present. No organomegaly. EXTREMITIES: Positive edema, redness, and ulcers. NEUROLOGICAL: The patient is awake and alert. Follows simple commands. MEDICATIONS: Tylenol, albuterol, aspirin, atorvastatin, Plavix, insulin, metformin, metoprolol, Singulair. LABORATORY DATA: White blood cell 5.1, hemoglobin 10, hematocrit 32.8, platelets 227. Sodium 140, potassium 4.5, BUN 14, creatinine 0.9, glucose 182. ASSESSMENT AND PLAN: The patient is a 52-year-old lady with anemia, hyperglycemia with past medical history of coronary artery bypass grafting, coronary artery disease, cardiac stenting, congestive heart failure, hypertension, diabetes mellitus, hypercholesterolemia, chronic obstructive pulmonary disease/asthma with signs of peripheral vascular disease and chronic venous stasis of the legs bilaterally with ulceration of the left upper portion of the calf that may be secondary to superinfected. Getting Zosyn and vancomycin. Monitor renal function test and local wound care. Arterial Doppler showing bilateral tibial disease. Multiple chronic issues with this patient, congestive heart failure, obesity, noncompliance. Induration and erythema of the legs have slightly improved. According to Dr. Grubbs, the patient needs two weeks of treatment with intravenous antibiotics with possible replacement . Vancomycin level is high as per Infectious Disease. ordered a.m. and labs. Gastrointestinal and deep venous thrombosis prophylaxis. Appreciating Dr. Grubbs's input. We will follow up. Ashley Robles MD MTDJacquelyn
[2018-07-12] MEDS: Lactobacillus Acidophilus 500 MU Cap PO SCH ×2 (09:37→17:24)
[2018-07-12] MEDS: Metoprolol Succinate 50 mg XL Tab PO SCH (09:37)
[2018-07-12] MEDS: Nystatin 100,000 Units/gm Topical Pow(15 gm) TOP SCH ×3 (09:38→17:29)
[2018-07-12] MEDS: Mupirocin 2% Ointment 15 GM TUBE TOP SCH ×2 (09:39→17:32)
--- NOTE | 2018-07-12 17:33 | CP.PCM.PN ---
Subjective - Date & Time of Evaluation Date of Evaluation: 07/12/18 Time of Evaluation: 16:00 - Subjective Subjective: Infectious Disease Follow Up: July 12, 2018 62 yo female with PMHx of CABG, CAD, cardiac stents, CHF, HTN, DM, HLD, COPD/asthma, and cellulitis presenting with fevers up to 101 F and lesion on the left leg on the posterior aspect that is erythematous, induration, and drainage. Patient states that the wound and erythema present for several months. Fevers started in the past day. Both lower legs with extensive signs of peripheral vascular disease, chronic venous stasis. Afebrile in the hospital so far. No leukocytosis. Erythema of the leg is slowly improving. Clear serosanguinous drainage from lef t calf ulcer. Patient is tolerating Vancomycin and Zosyn. Wound cultures negative to date. Noted that patient is homeless. The majority of the leg changes more likely secondary to the patient's pe ripheral vascular disease and chronic venous stasis. Vancomycin levels high... continuing to hold Vancomycin dosing. Recheck vancomycin levels in AM. Creatinine increased to 1.5 yesterday and slightly improved to 1.4. Objective - Vital Signs/Intake and Output Vital Signs (last 24 hours): Temp Pulse Resp BP Pulse Ox 97.4 F L 63 18 101/58 L 96 07/12/18 14:00 07/12/18 14:00 07/12/18 14:00 07/12/18 14:00 07/12/18 14:00 - Medications Medications: Current Medications Acetaminophen (Tylenol 325mg Tab) 650 mg PO Q4H PRN PRN Reason: pain fever Last Admin: 07/08/18 20:28 Dose: 650 mg Albuterol/Ipratropium (Duoneb 3 Mg/0.5 Mg (3 Ml) Ud) 3 ml IH [id number] [facility] Last Admin: 07/12/18 13:21 Dose: 3 ml Aspirin (Ecotrin) 81 mg PO DAILY [facility] Last Admin: 07/12/18 09:37 Dose: 81 mg Atorvastatin Calcium (Lipitor) 10 mg PO DIN [facility] Last Admin: 07/11/18 17:09 Dose: 10 mg Clopidogrel Bisulfate (Plavix) 75 mg PO DAILY [facility] Last Admin: 07/12/18 09:37 Dose: 75 mg Dicyclomine HCl (Bentyl) 20 mg PO TID PRN PRN Reason: Pain, Mild (1-3) Furosemide (Lasix) 40 mg IVP Q12 [facility] Last Admin: 07/12/18 09:36 Dose: 40 mg Vancomycin HCl (Vancomycin 750 Mg In Ns) 750 mg in 250 mls @ 167 mls/hr IVPB Q12H [facility]; Protocol Last Admin: 07/10/18 10:35 Dose: 167 mls/hr Insulin Human Regular (Humulin R Low) 0 units SC ACHS [facility]; Protocol Last Admin: 07/12/18 12:10 Dose: Not Given Lactobacillus Acidophilus (Bacid Acidophilus) 1 cap PO BID [facility] Last Admin: 07/12/18 09:37 Dose: 1 cap Loratadine (Claritin) 10 mg PO DAILY [facility] Last Admin: 07/12/18 09:37 Dose: 10 mg Metformin HCl (Glucophage) 500 mg PO BID [facility] Last Admin: 07/12/18 09:37 Dose: 500 mg Metoprolol Succinate (Toprol Xl) 50 mg PO DAILY [facility] Last Admin: 07/12/18 09:37 Dose: 50 mg Montelukast Sodium (Singulair) 10 mg PO HS [facility] Last Admin: 07/11/18 22:27 Dose: 10 mg Mupirocin (Bactroban Ointment) 0 gm TOP BID [facility] Last Admin: 07/12/18 09:39 Dose: 1 applic Nystatin (Nystop Topical Powder) 0 gm TOP TID [facility] Last Admin: 07/12/18 09:38 Dose: 1 applic - Labs Labs: 07/11/18 07:00 07/12/18 07:30 - Constitutional Appears: Non-toxic, No Acute Distress, Chronically Ill - Head Exam Head Exam: ATRAUMATIC, NORMOCEPHALIC - Eye Exam Eye Exam: EOMI, PERRL Pupil Exam: NORMAL ACCOMODATION, PERRL - ENT Exam ENT Exam: Mucous Membranes Moist, Normal External Ear Exam, TM's Normal Bilaterally - Neck Exam Neck Exam: Full ROM, Normal Inspection - Respiratory Exam Respiratory Exam: Clear to Ausculation Bilateral, NORMAL BREATHING PATTERN. abs ent: Rales, Rhonchi, Wheezes - Cardiovascular Exam Cardiovascular Exam: REGULAR RHYTHM, RRR, +S1, +S2 - GI/Abdominal Exam GI & Abdominal Exam: Soft, Normal Bowel Sounds. absent: Distended, Tenderness - Extremities Exam Extremities Exam: Full ROM, Normal Inspection - Neurological Exam Neurological Exam: Alert, Awake, CN II-XII Intact, Oriented x3 - Psychiatric Exam Psychiatric exam: Normal Affect, Normal Mood - Skin Skin Exam: Intact, Normal Color Assessment and Plan - Assessment and Plan (Free Text) Assessment: 62 yo female with PMHx of CABG, CAD, cardiac stents, CHF, HTN, DM, HLD, and COPD/asthma with signs of PVD and chronic venous stasis of the legs bilaterally with ulceration of the Left upper posterior calf that may be secondary superinfected. Started on IV Zosyn and Vancomycin. Monitor renal function. Consider arterial doppler studies for the patient. Supportive care. Local wound care. Arterial doppler showing bilateral tibial disease. Multiple chronic issues on this patient. Induration and erythema of the legs have slightly improved. Would give up to 2 weeks of treatment with IV antibiotics with possible placement at [facility] given homeless situation. The patient will still have some level of erythema and induration secondary to chronic condition of the bilateral tibial disease. Vancomycin level high. Holding doses. Vancomycin Random 27.2 down to 19.3 today. Recheck level in AM with CMP. Noted Creatinine of 1.4 today slightly improved from 1.5. Will restart Vancomycin at 750 mg IV daily. Thank you for allowing me to participate in the care of the patient, we will follow with you.
[2018-07-12] MEDS: Vancomycin 750mg 750 MG/250 ML BAG IVPB SCH (19:01)
[2018-07-13] MEDS: Albuterol-Ipratrop 3 mg / 0.5 (3 ml) UD IH SCH ×3 (01:29→13:12)
[2018-07-13] MEDS: Insulin Reg-LOW-Coverage SC SCH ×4 (07:09→16:44)
[2018-07-13] MEDS: Lactobacillus Acidophilus 500 MU Cap PO SCH ×2 (10:38→17:54)
[2018-07-13] MEDS: Metoprolol Succinate 50 mg XL Tab PO SCH (10:38)
[2018-07-13] MEDS: Nystatin 100,000 Units/gm Topical Pow(15 gm) TOP SCH ×2 (10:39→14:15)
[2018-07-13] MEDS: Vancomycin 750mg 750 MG/250 ML BAG IVPB SCH (10:39)
[2018-07-13] MEDS: Mupirocin 2% Ointment 15 GM TUBE TOP SCH (10:40)
[2018-07-13 15:00] VITALS: BP 96/65; PULSE 70; RESP 16; TEMP 97; O2SAT 99
--- NOTE | 2018-07-13 18:27 | CP.PCM.PN ---
Subjective - Date & Time of Evaluation Date of Evaluation: 07/13/18 Time of Evaluation: 16:15 - Subjective Subjective: Infectious Disease Follow Up: July 13, 2018 62 yo female with PMHx of CABG, CAD, cardiac stents, CHF, HTN, DM, HLD, COPD/asthma, and cellulitis presenting with fevers up to 101 F and lesion on the left leg on the posterior aspect that is erythematous, induration, and drainage. Patient states that the wound and erythema present for several months. Fevers started in the past day. Both lower legs with extensive signs of peripheral vascular disease, chronic venous stasis. Afebrile in the hospital so far. No leukocytosis. Erythema of the leg is slowly improving. Clear serosanguinous drainage from lef t calf ulcer. Patient is tolerating Vancomycin and Zosyn. Wound cultures negative to date. Noted that patient is homeless. The majority of the leg changes more likely secondary to the patient's pe ripheral vascular disease and chronic venous stasis. Vancomycin levels high... continuing to hold Vancomycin dosing. Recheck vancomycin levels in AM. Creatinine increased to 1.5 two days ago and slightly improved to 1.4 yesterday. For discharge to [facility] today. Objective - Vital Signs/Intake and Output Vital Signs (last 24 hours): Temp Pulse Resp BP Pulse Ox 97 F L 70 16 96/65 L 99 07/13/18 14:00 07/13/18 14:00 07/13/18 14:00 07/13/18 14:00 07/13/18 14:00 Intake and Output: 07/13/18 07/13/18 06:59 18:59 Intake Total 240 Balance 240 - Medications Medications: Current Medications Acetaminophen (Tylenol 325mg Tab) 650 mg PO Q4H PRN PRN Reason: pain fever Last Admin: 07/08/18 20:28 Dose: 650 mg Albuterol/Ipratropium (Duoneb 3 Mg/0.5 Mg (3 Ml) Ud) 3 ml IH [id number] [facility] Last Admin: 07/13/18 13:12 Dose: Not Given Aspirin (Ecotrin) 81 mg PO DAILY [facility] Last Admin: 07/13/18 10:38 Dose: 81 mg Atorvastatin Calcium (Lipitor) 10 mg PO DIN [facility] Last Admin: 07/13/18 17:54 Dose: 10 mg Clopidogrel Bisulfate (Plavix) 75 mg PO DAILY [facility] Last Admin: 07/13/18 10:38 Dose: 75 mg Dicyclomine HCl (Bentyl) 20 mg PO TID PRN PRN Reason: Pain, Mild (1-3) Furosemide (Lasix) 40 mg IVP Q12 [facility] Last Admin: 07/13/18 10:34 Dose: 40 mg Vancomycin HCl (Vancomycin 750 Mg In Ns) 750 mg in 250 mls @ 167 mls/hr IVPB DAILY [facility]; Protocol Last Admin: 07/13/18 10:39 Dose: 167 mls/hr Insulin Human Regular (Humulin R Low) 0 units SC ACHS [facility]; Protocol Last Admin: 07/13/18 16:44 Dose: Not Given Lactobacillus Acidophilus (Bacid Acidophilus) 1 cap PO BID [facility] Last Admin: 07/13/18 17:54 Dose: 1 cap Loratadine (Claritin) 10 mg PO DAILY [facility] Last Admin: 07/13/18 10:38 Dose: 10 mg Metformin HCl (Glucophage) 500 mg PO BID [facility] Last Admin: 07/13/18 17:54 Dose: 500 mg Metoprolol Succinate (Toprol Xl) 50 mg PO DAILY [facility] Last Admin: 07/13/18 10:38 Dose: 50 mg Montelukast Sodium (Singulair) 10 mg PO HS [facility] Last Admin: 07/12/18 22:05 Dose: 10 mg Mupirocin (Bactroban Ointment) 0 gm TOP BID [facility] Last Admin: 07/13/18 10:40 Dose: 1 applic Nystatin (Nystop Topical Powder) 0 gm TOP TID [facility] Last Admin: 07/13/18 14:15 Dose: Not Given - Labs Labs: 07/11/18 07:00 07/12/18 07:30 - Constitutional Appears: Non-toxic, No Acute Distress, Chronically Ill - Head Exam Head Exam: ATRAUMATIC, NORMOCEPHALIC - Eye Exam Eye Exam: EOMI, PERRL Pupil Exam: NORMAL ACCOMODATION, PERRL - ENT Exam ENT Exam: Mucous Membranes Moist, Normal External Ear Exam, TM's Normal Bilaterally - Neck Exam Neck Exam: Full ROM, Normal Inspection - Respiratory Exam Respiratory Exam: Clear to Ausculation Bilateral, NORMAL BREATHING PATTERN. absent: Rales, Rhonchi, Wheezes - Cardiovascular Exam Cardiovascular Exam: REGULAR RHYTHM, RRR, +S1, +S2 - GI/Abdominal Exam GI & Abdominal Exam: Soft, Normal Bowel Sounds. absent: Distended, Tenderness - Extremities Exam Extremities Exam: Full ROM Additional comments: Bilateral leg erythema and induration that has improved overall. Left upper calf with Stage II-III ulceration with minimal clear serosaguinous drainage. No odor at time of exam. - Neurological Exam Neurological Exam: Alert, Awake, CN II-XII Intact, Oriented x3 - Psychiatric Exam Psychiatric exam: Normal Affect, Normal Mood - Skin Skin Exam: Intact, Normal Color Assessment and Plan - Assessment and Plan (Free Text) Assessment: 62 yo female with PMHx of CABG, CAD, cardiac stents, CHF, HTN, DM, HLD, and COPD/asthma with signs of PVD and chronic venous stasis of the legs bilaterally with ulceration of the Left upper posterior calf that may be secondary superinfected. Started on IV Zosyn and Vancomycin. Monitor renal function. C onsider arterial doppler studies for the patient. Supportive care. Local wound care. Arterial doppler showing bilateral tibial disease. Multiple chronic issues on this patient. Induration and erythema of the legs have slightly improved. Would give up to 2 weeks of treatment with IV antibiotics with possible placement at [facility] given homeless situation. The patient will still have some level of erythema and induration secondary to chronic condition of the bilateral tibial disease. Vancomycin level high. Holding doses. Vancomycin Random 27.2 down to 19.3 today. Recheck level in AM with CMP. Noted Creatinine of 1.4 yesterday slightly improved from 1.5. Restarted Vancomycin at 750 mg IV daily. For discharge to [facility] today. Will follow at [facility]. Thank you for allowing me to participate in the care of the patient, we will follow with you.
--- NOTE | 2018-07-13 18:35 | PN ---
DATE: 07/12/2018 SUBJECTIVE: The patient is a 62-year-old female. The patient was seen and examined at the bedside on 07/12/2018. Looking comfortable. No fever. No chills. No hematuria. No hematochezia. No headache or dizziness. No chest pain. No palpitation. Legs are a little bit better, getting IV antibiotics. PHYSICAL EXAMINATION: VITAL SIGNS: Temperature 97.4, pulse 66, respiratory rate 18, blood pressure is 101/58, and pulse oximetry 96%. HEENT: Head is normocephalic and atraumatic. Eyes PERRLA. Extraocular muscles intact. Conjunctivae clear. Nose patent. Mucous membranes moist. NECK: Supple. No carotid bruits. No JVD or thyromegaly. CHEST: Bilaterally symmetrical. HEART: S1 and S2 positive. LUNGS: Clear to auscultation. ABDOMEN: Soft. Bowel sounds present. No organomegaly. EXTREMITIES: Trace redness and warmth, having dressing. NEUROLOGIC: The patient is awake and alert and follows simple commands. MEDICATIONS: Tylenol, albuterol, aspirin, Lipitor, Plavix, Bentyl, Lasix, Lactobacillus, metformin, metoprolol,nystatin topical powder. LABORATORY DATA: White blood cell 5.2, hemoglobin 11.6, hematocrit 37.1, and platelets 239. Sodium 130, potassium 3.6, BUN 23, and creatinine 1.4 and glucose 125. ASSESSMENT AND PLAN: Ms. Kateryna Mcwilliams*is a 62-year-old female with anemia, hypochloremia, renal insufficiency, hyperglycemia, past medical history of coronary artery bypass graft, coronary artery disease, cardiac stent, congestive heart failure, hypertension, diabetes mellitus, hypercholesterolemia, chronic obstructive pulmonary disease/asthma, came with findings of peripheral vascular disease and chronic venous stasis of the legs bilaterally with ulceration of the left upper posterior part of the calf that looks like super infection. The patient is getting Zosyn and vancomycin. Vancomycin random is 27.2, down to 19.3 today. Recheck level in a.m. with the CMP noted creatinine is 1.4 slightly improved from 1.5. vancomycin at 750 mg intravenous daily. According to Infectious Disease, the patient will need at least two weeks of IV antibiotics. Gastrointestinal, deep vein thrombosis prophylaxis, and repeat labs. Discussion done with case management social worker about the patient's long-term plan. The patient is homeless, getting too may hospital admission and ER visits and noncompliant with medications due to lack of social networking. We will follow up. Ashley Robles MD [facility]
--- NOTE | 2018-07-14 08:35 | PN ---
This case was discussed with Dr. Robles she is inagreement with treatment plan. DATE: 07/13/2018 SUBJECTIVE: A 62-year-old female and with cellulitis, obesity, edema, CHF, COPD. I saw the patient today at the bedside. The patient is alert, ambulating without difficulty. No edema noted to bilateral legs, legs looking well. She continues antibiotics. The patient is denying any chest pain, shortness of breath, abdominal pain, hematuria, hematochezia, fevers or chills. SOCIAL HISTORY: Right now, the patient is homeless. We did discuss with the patient possible discharge to subacute rehab. We will plan for possible long-term care. The patient did voice that she does not have insurance. wire web worker is on the case. Risk Advisor is on the case. PHYSICAL EXAMINATION GENERAL: The patient appears in no acute distress. VITAL SIGNS: Temperature of 97, pulse rate 70, blood pressure 96/65, respiratory rate 16, O2 saturating at 99% on room air. HEENT: Normocephalic and atraumatic. PERRLA. Mucous membranes moist. NECK: Supple. No thyromegaly. RESPIRATORY: Clear to auscultation. No wheeze, no rhonchi. CARDIOVASCULAR: S1 and S2. No JVD. ABDOMEN: Soft, nondistended, no organomegaly. EXTREMITIES: The patient is moving all extremities, ambulating without difficulty. No calf tenderness, no edema. The patient has a laser erythema with cellulitis. Bilaterally erythemic cellulitis to the left lower extremity with a small wound, stage 1 to 2, being treated with bacitracin daily, wound is red without drainage. NEUROLOGIC: The patient is alert and oriented x3. MEDICATIONS: DuoNeb, Ecotrin, Lipitor, Plavix, Bentyl, Lasix, Accu-Chek a.c. and at bedtime, Lactobacillus one tab p.o. b.i.d., Claritin 10 mg daily, metformin 500 mg, Lopressor 50 mg p.o. daily, Singulair, Bactroban ointment applied topically, nystatin powder, vancomycin 750 mg IV piggyback. LABORATORY DATA: White blood cells 5.2, hemoglobin 11.6, hematocrit 37.7, platelet count 239. Sodium 139, potassium 3.6, BUN 26, creatinine 1.4, random glucose this morning 125, estimated GFR 38. Vancomycin trough this morning was 19.3, random vancomycin 19.3. ASSESSMENT AND PLAN: This is a 62-year-old female with cellulitis to the left lower extremity, edema, obesity, chronic obstructive pulmonary disease, diabetes mellitus, peripheral vascular disease. She continues with vancomycin 750 mg daily, vancomycin trough reviewed. Random vancomycin reviewed. Continues treatment with Bactroban to left lower wound. I saw the wound today, a little erythema, no drainage. She continues on Lopressor, metformin twice a day, Lactobacillus, Lasix 40 mg IV push every 12 hours BUN 26, creatinine 1.4, we will decrease Lasix to 20 mg po daily. Plavix 75 mg, Lipitor, aspirin, bronchodilator. We will follow up. ALL ABOVE NOTED , EDUCATION DONE , AGREED WITH [facility] PN , DIG.AND PLANS , LABS NOTED,NEED AT LEAST 2 WKS I/V ANB Leroy Olivera APN Ashley Robles MD [facility]
== END 2018-07-13 18:38 | DRG 277 ==
LOC: ED 12:16 → ERH 17:01 → 5RSO 21:06 → OBSVTOIN 07-08 18:41 → INTOOBSV 07-08 18:45 → 5RSO 07-09 04:24 → ERH 07-09 17:18 → 5RSO 07-09 17:19
PROVIDERS: ADMIT Internal Medicine; ATTEND Internal Medicine
PROC: 02HV33Z Insertion of Infusion Device into Superior Vena Cava, Percutaneous Approach (ICD-10-PCS; principal; 2018-07-12)
PROC: B548ZZA Ultrasonography of Superior Vena Cava, Guidance (ICD-10-PCS; 2018-07-12)
DX: L03.115 Cellulitis of right lower limb (principal); L97.229 Non-pressure chronic ulcer of left calf with unspecified severity; E11.51 Type 2 diabetes mellitus with diabetic peripheral angiopathy without gangrene; E87.8 Other disorders of electrolyte and fluid balance, not elsewhere classified; I11.0 Hypertensive heart disease with heart failure; I50.9 Heart failure, unspecified; J44.9 Chronic obstructive pulmonary disease, unspecified; L03.116 Cellulitis of left lower limb; I87.2 Venous insufficiency (chronic) (peripheral); D64.9 Anemia, unspecified; E03.9 Hypothyroidism, unspecified; E66.9 Obesity, unspecified; E78.00 Pure hypercholesterolemia, unspecified; E78.5 Hyperlipidemia, unspecified; I25.10 Atherosclerotic heart disease of native coronary artery without angina pectoris; I87.8 Other specified disorders of veins; N28.9 Disorder of kidney and ureter, unspecified; Z59.0 Homelessness; Z91.14 Patient's other noncompliance with medication regimen; Z91.19 Patient's noncompliance with other medical treatment and regimen; Z95.1 Presence of aortocoronary bypass graft; Z95.5 Presence of coronary angioplasty implant and graft; Z87.891 Personal history of nicotine dependence; Z87.01 Personal history of pneumonia (recurrent); Z79.02 Long term (current) use of antithrombotics/antiplatelets; Z79.82 Long term (current) use of aspirin; Z79.899 Other long term (current) drug therapy